=== PATIENT | male | born 1955 | race Caucasian/White ===

== ENCOUNTER 2018-07-05 13:30 | Day surgery (SDC) | payer OTHER ==
[~2018-07-05 13:30] MED LIST: CHOL10002 PO; DULO30 PO; GABA300 PO; IBUP400 PO; LEVSOD100 PO; LIPITOR PO; Multivitamin1 EAC1 PO; NAPR220 PO; TERA5 PO; TIOT18 INH; Zestril30 MG PO
== END 2018-07-05 23:16 | disposition home or self-care (01) ==
LOC: WOUND 13:30
DX: T81.30XA Disruption of wound, unspecified, initial encounter (principal); Z85.048 Personal history of other malignant neoplasm of rectum, rectosigmoid junction, and anus; J44.9 Chronic obstructive pulmonary disease, unspecified; I10 Essential (primary) hypertension; I73.9 Peripheral vascular disease, unspecified; E11.9 Type 2 diabetes mellitus without complications; M06.9 Rheumatoid arthritis, unspecified; M19.90 Unspecified osteoarthritis, unspecified site; G62.9 Polyneuropathy, unspecified; Z79.82 Long term (current) use of aspirin
CPT/HCPCS: G0463

== ENCOUNTER 2018-08-06 12:35 | Day surgery (SDC) | payer OTHER | END 2018-08-06 22:38 | disposition home or self-care (01) | LOC: WOUND 12:35 | DX: K62.6 Ulcer of anus and rectum (principal); I10 Essential (primary) hypertension; E11.9 Type 2 diabetes mellitus without complications; E11.40 Type 2 diabetes mellitus with diabetic neuropathy, unspecified; J44.9 Chronic obstructive pulmonary disease, unspecified; D64.9 Anemia, unspecified; Z85.048 Personal history of other malignant neoplasm of rectum, rectosigmoid junction, and anus | CPT/HCPCS: G0463 ==

== ENCOUNTER 2018-09-05 11:05 | Day surgery (SDC) | payer OTHER | END 2018-09-05 23:24 | disposition home or self-care (01) | LOC: WOUND 11:05 | DX: T81.89XA Other complications of procedures, not elsewhere classified, initial encounter (principal); J44.9 Chronic obstructive pulmonary disease, unspecified; I10 Essential (primary) hypertension; E11.51 Type 2 diabetes mellitus with diabetic peripheral angiopathy without gangrene; M06.9 Rheumatoid arthritis, unspecified; E11.40 Type 2 diabetes mellitus with diabetic neuropathy, unspecified; M19.90 Unspecified osteoarthritis, unspecified site; Z85.048 Personal history of other malignant neoplasm of rectum, rectosigmoid junction, and anus; Z92.21 Personal history of antineoplastic chemotherapy; Z92.3 Personal history of irradiation | CPT/HCPCS: G0463 ==

== ENCOUNTER 2018-12-17 14:00 | Emergency (ER) | payer OTHER ==
[~2018-12-17] VITALS: Ht 175.3 cm; Wt 89.8 kg
[2018-12-17 14:52] LABS: BASOPHILS ABSOLUTE AUTO 0.04 K/mm3 (0.00-0.23); BASOPHILS PERCENT AUTO 0 % (0-2); EOSINOPHILS PERCENT AUTO 3 % (0-6); Hematocrit 20.5 % (37.0-53.0); Hemoglobin 6.3 g/dL (13.5-17.5); IMMATURE GRAN PERCENT AUTO 1 % (0-1); LYMPHOCYTES ABSOLUTE AUTO 2.76 K/mm3 (0.84-5.20); LYMPHOCYTES PERCENT AUTO 26 % (21-46); MONOCYTES ABSOLUTE AUTO 0.58 K/mm3 (0.16-1.47); MONOCYTES PERCENT AUTO 5 % (4-13); Mean Corpuscular HGB 28.3 pg (26.0-34.0); Mean Corpuscular HGB Conc 30.7 g/dL (31.5-36.5); Mean Corpuscular Volume 92 fL (80-100); Mean Platelet Volume 9.7 fL (9.1-12.4); NEUTROPHILS ABSOLUTE AUTO 6.89 K/mm3 (1.96-9.15); NEUTROPHILS PERCENT AUTO 65 % (41-73); Platelet Count 331 K/mm3 (150-400); RDW Coefficient Variation 14.8 % (11.7-14.2); RDW Standard Deviation 49.9 fL (35.1-46.3); Red Blood Cell Count 2.23 M/mm3 (4.30-5.90); White Blood Cell Count 10.67 K/mm3 (4.00-11.30)
[2018-12-17 15:08] LABS: Albumin, Blood 2.6 g/dL (3.4-5.0); Albumin/Globulin Ratio 0.5 (0.8-1.8); Bilirubin, Total 0.2 mg/dL (0.1-1.0); Bun/Creatinine Ratio 13.4 (12.0-20.0); Calcium, Blood 6.6 mg/dL (8.5-10.1); Creatinine, Blood 1.34 mg/dL (0.60-1.20); Potassium, Blood 3.9 mmol/L (3.5-5.5); Total Protein, Blood 7.6 g/dL (6.4-8.2)
[2018-12-17] MEDS ORDERED: ALBU2.5V5 INH (15:43)
[2018-12-17] MEDS ORDERED: AMLO5 PO (15:43)
[2018-12-17] MEDS ORDERED: ASPI81CH PO (15:44)
[2018-12-17] MEDS ORDERED: ATOR10 PO (15:45)
[2018-12-17] MEDS ORDERED: DOXY100 PO (15:46)
[2018-12-17] MEDS ORDERED: DULO60 PO (15:46)
[2018-12-17] MEDS ORDERED: METF500 PO (15:47)
[2018-12-17] MEDS ORDERED: GABA300 PO (15:47)
[2018-12-17] MEDS ORDERED: HYDR1TAB94 PO (15:48)
[2018-12-17] MEDS ORDERED: FERSU300 PO (15:49)
[2018-12-17] MEDS ORDERED: Prinivil10 MG PO (15:49)
[2018-12-17] MEDS ORDERED: LEVSOD50 PO (15:49)
[2018-12-17] MEDS ORDERED: OMEP20ER PO (15:50)
[2018-12-17] MEDS ORDERED: MELO7.5 PO (15:50)
[2018-12-17] MEDS ORDERED: TERA5 PO (15:51)
[2018-12-17] MEDS ORDERED: MONT10T PO (15:51)
[2018-12-17] MEDS ORDERED: ACET500 PO (15:52)
[2018-12-17 17:05] LABS: Source, Urine Clean Catch
[2018-12-17 17:09] LABS: Bilirubin, Urine Neg (Neg); Blood, Urine Neg (Neg); Glucose Qualitative, Urine Neg (Neg); Ketones, Urine 1+ (Neg); Leukocyte Esterase, Urine Neg (Neg); Nitrite, Urine Neg (Neg); Protein, Urine 2+ (Neg); Urobilinogen, Urine 1+ (Normal)
[2018-12-17 17:17] LABS: Appearance, Urine Clear (Clear); Color, Urine Yellow (P-Yellow)
[2018-12-17 17:20] LABS: Bacteria Not Seen /hpf; Red Blood Cells, Urine Not Seen /hpf (0-2); Squamous Epithelial Cells Rare /hpf (Few); White Blood Cells, Urine 0-2 /hpf (0-5)
[2019-02-04] MEDS ORDERED: TIOT18 INH (11:04)
[2019-02-04] MEDS ORDERED: D3-20002000 UNIT PO (11:05)
[2019-02-04] MEDS ORDERED: HYDCHL25 PO (11:06)
[2019-02-04] MEDS ORDERED: Aspercreme 1035.4 GM TOP (11:07)
[2019-02-04] MEDS ORDERED: Aspir 8181 MG PO (11:07)
== END 2018-12-17 19:55 | disposition short-term general hospital (02) ==
LOC: ER 14:00
PROVIDERS: Physician Assistant
DX: T81.43XA Infection following a procedure, organ and space surgical site, initial encounter (principal); L02.214 Cutaneous abscess of groin; T81.32XA Disruption of internal operation (surgical) wound, not elsewhere classified, initial encounter; K92.2 Gastrointestinal hemorrhage, unspecified; D50.0 Iron deficiency anemia secondary to blood loss (chronic); J44.9 Chronic obstructive pulmonary disease, unspecified; I10 Essential (primary) hypertension; E78.00 Pure hypercholesterolemia, unspecified; Z91.030 Bee allergy status; Z79.899 Other long term (current) drug therapy; Z79.82 Long term (current) use of aspirin; Z79.84 Long term (current) use of oral hypoglycemic drugs; Z87.891 Personal history of nicotine dependence
CPT/HCPCS: 36415; 36430; 76882; 80053; 81001; 82272; 85025; 86850; 86900; 86901; 86923; 93005; 93010; 93971; 96374; 99285-25; C9113; J7030; P9016

== ENCOUNTER 2019-02-12 13:04 | Day surgery (SDC) | payer OTHER ==
[~2019-02-12 13:04] MED LIST changes: +ACET500 PO; +ALBU2.5V5 INH; +AMLO5 PO; +ASPI81CH PO; +ATOR10 PO; +Aspercreme 1035.4 GM TOP; +Aspir 8181 MG PO; +D3-20002000 UNIT PO; +DOXY100 PO; +DULO60 PO; +FERSU300 PO; +HYDCHL25 PO; +HYDR1TAB94 PO; +LEVSOD50 PO; +MELO7.5 PO; +METF500 PO; +MONT10T PO; +OMEP20ER PO; +Prinivil10 MG PO
[2019-02-12] MEDS ORDERED: HYDRA25 (13:27)
[2019-02-12] MEDS ORDERED: Lisinopril2.5 MG (13:28)
[2019-02-12] MEDS ORDERED: AMLO10 (13:29)
== END 2019-02-12 15:14 | disposition home or self-care (01) ==
LOC: ORSCSDS 13:04
PROVIDERS: Internal Medicine Gastroenterology
PROC: 0DBL8ZX Excision of Transverse Colon, Via Natural or Artificial Opening Endoscopic, Diagnostic (ICD-10-PCS; principal; 2019-02-12 14:15)
PROC: 0DBH8ZX Excision of Cecum, Via Natural or Artificial Opening Endoscopic, Diagnostic (ICD-10-PCS; principal; 2019-02-12 14:15)
PROC: 0DB68ZX Excision of Stomach, Via Natural or Artificial Opening Endoscopic, Diagnostic (ICD-10-PCS; 2019-02-12 14:15)
PROC: 0DB98ZX Excision of Duodenum, Via Natural or Artificial Opening Endoscopic, Diagnostic (ICD-10-PCS; 2019-02-12 14:15)
DX: D50.9 Iron deficiency anemia, unspecified (principal); D12.0 Benign neoplasm of cecum; D12.3 Benign neoplasm of transverse colon; Z85.048 Personal history of other malignant neoplasm of rectum, rectosigmoid junction, and anus; K29.80 Duodenitis without bleeding; I10 Essential (primary) hypertension; K21.0 Gastro-esophageal reflux disease with esophagitis; E11.9 Type 2 diabetes mellitus without complications; J44.9 Chronic obstructive pulmonary disease, unspecified; F17.210 Nicotine dependence, cigarettes, uncomplicated; Z79.82 Long term (current) use of aspirin; Z79.899 Other long term (current) drug therapy
CPT/HCPCS: 82947; 88305; 88313; 88342; J2704; J7120

== ENCOUNTER 2022-04-06 17:48 | Inpatient (IN) | payer OTHER ==
[~2022-04-06] VITALS: Ht 175.3 cm; Wt 84.3 kg
[~2022-04-06 17:48] MED LIST changes: +AMLO10; -D3-20002000 UNIT PO; +DOCU100 PO; +EUTHYROX50 MCG PO; +HYDRA25 PO; -LEVSOD50 PO; +Lisinopril2.5 MG PO; +NIFE60ER PO; +QUET25 PO; +Vitamin D2000 UNIT PO
[2022-04-06 18:18] LABS: BASOPHILS ABSOLUTE AUTO 0.04 K/mm3 (0.00-0.23); BASOPHILS PERCENT AUTO 0 % (0-2); EOSINOPHILS PERCENT AUTO 1 % (0-6); Hematocrit 24.4 % (37.0-53.0); Hemoglobin 7.9 g/dL (13.5-17.5); IMMATURE GRAN ABSOLUTE AUTO 0.01 K/mm3 (0.00-0.10); IMMATURE GRAN PERCENT AUTO 0 % (0-1); LYMPHOCYTES ABSOLUTE AUTO 1.62 K/mm3 (0.84-5.20); LYMPHOCYTES PERCENT AUTO 17 % (21-46); MONOCYTES ABSOLUTE AUTO 0.65 K/mm3 (0.16-1.47); MONOCYTES PERCENT AUTO 7 % (4-13); Mean Corpuscular HGB 32.5 pg (26.0-34.0); Mean Corpuscular HGB Conc 32.4 g/dL (31.5-36.5); Mean Corpuscular Volume 100 fL (80-100); Mean Platelet Volume 11.1 fL (9.1-12.4); NEUTROPHILS ABSOLUTE AUTO 6.88 K/mm3 (1.96-9.15); NEUTROPHILS PERCENT AUTO 74 % (41-73); Platelet Count 296 K/mm3 (150-400); RDW Standard Deviation 51.3 fL (35.1-46.3); Red Blood Cell Count 2.43 M/mm3 (4.30-5.90)
[2022-04-06 18:42] LABS: Albumin, Blood 2.8 g/dL (3.4-5.0); Albumin/Globulin Ratio 0.7 (0.8-1.8); Bilirubin, Total 0.2 mg/dL (0.1-1.0); Bun/Creatinine Ratio 21.6 (12.0-20.0); Calcium, Blood 7.9 mg/dL (8.5-10.1); Creatinine, Blood 1.62 mg/dL (0.60-1.20); Globulin, Blood 4.2 g/dL (2.2-4.0); Potassium, Blood 4.1 mmol/L (3.5-5.5)
[2022-04-06 18:59] LABS: Base Excess Venous -2.3 mmol/L; Bicarbonate Venous 22.5 mmol/L (24.0-30.0); pH Blood Venous 7.34 (7.34-7.37)
[2022-04-06] MEDS ORDERED: GABA300 PO (22:39)
--- NOTE | 2022-04-07 00:25 | NUR ---
ADMISSION: PATIENT IS RECIEVED FROM ER VIA STRETCHER. LETHARGIC BUT ORIENTED TO PERSON, PLACE, TIME AND FAMILY. VOIDED IN THE URINAL WITH ASSISTANCE. URINE SAMPLE IS SENT TO LAB. BP IS ELEVATED, PATIENT IS ASYMPTOMATIC AND DENIES HEADACHE OR BLURRED VISION. TELI. IS PLACED. BED ALARM IS ON. PATIENT IS ORIENTED TO ROOM AND CALL CASTILLO. 2 RN SKIN CHECK IS COMPLETED WITH CHRIS MONTES DE OCA RN. NO WOUNDS OBSERVED. SCATTERED SCABS AND BRUISES FROM RECENT FALLS AT HOME.
--- NOTE | 2022-04-07 02:30 | NUR ---
: PATIENT HAS URINARY FREQUENCY AND ORDER TO BLADDER SCAN. [address] BARRETT WAS NOYTIFIED AND ORDER TO STRAIGHT CATH NOW AND BLADDER SCAN Q 8 HR. PATIENT VOIDED 100MLS AND 450MLS WERE EMPTIED FROM BLADDER VIA STRAIGHT CATH. BLADDER SCAN NEXT DUE AT 10:00 AM.
[2022-04-07 03:04] LABS: Source, Urine Straight Cath
[2022-04-07 03:07] LABS: Bilirubin, Urine Neg (Neg); Blood, Urine 1+ (Neg); Glucose Qualitative, Urine Neg (Neg); Ketones, Urine Neg (Neg); Leukocyte Esterase, Urine Neg (Neg); Nitrite, Urine Neg (Neg); Protein, Urine 3+ (Neg); Specific Gravity, Urine 1.015 (1.003-1.022); Urobilinogen, Urine NORM (Normal)
[2022-04-07 03:20] LABS: Appearance, Urine Clear (Clear); Color, Urine Yellow (P-Yellow)
[2022-04-07 03:24] LABS: Bacteria Rare /hpf; Red Blood Cells, Urine 0-2 /hpf (0-2); Squamous Epithelial Cells Rare /hpf (Few)
[2022-04-07 03:25] LABS: U Amphetamine Screen Not Detected; U Barbituate Screen Not Detected; U Benzodiazapine Screen Not Detected; U Buprenorphine Screen Not Detected; U Cannabinoids Screen Not Detected; U Cocaine Screen Not Detected; U Methadone Screen Not Detected; U Methamphetamine Screen Not Detected; U Opiates Screen Not Detected; U Oxycodone Screen Not Detected; U Phencyclidine Screen Not Detected; U Propoxyphene Screen Not Detected
[2022-04-07 05:53] LABS: BASOPHILS ABSOLUTE AUTO 0.02 K/mm3 (0.00-0.23); BASOPHILS PERCENT AUTO 0 % (0-2); EOSINOPHILS PERCENT AUTO 0 % (0-6); Hematocrit 25.5 % (37.0-53.0); Hemoglobin 8.2 g/dL (13.5-17.5); IMMATURE GRAN ABSOLUTE AUTO 0.03 K/mm3 (0.00-0.10); IMMATURE GRAN PERCENT AUTO 0 % (0-1); LYMPHOCYTES ABSOLUTE AUTO 0.96 K/mm3 (0.84-5.20); LYMPHOCYTES PERCENT AUTO 11 % (21-46); MONOCYTES ABSOLUTE AUTO 0.11 K/mm3 (0.16-1.47); MONOCYTES PERCENT AUTO 1 % (4-13); Mean Corpuscular HGB 31.8 pg (26.0-34.0); Mean Corpuscular HGB Conc 32.2 g/dL (31.5-36.5); Mean Corpuscular Volume 99 fL (80-100); Mean Platelet Volume 11.5 fL (9.1-12.4); NEUTROPHILS ABSOLUTE AUTO 7.78 K/mm3 (1.96-9.15); NEUTROPHILS PERCENT AUTO 88 % (41-73); Platelet Count 323 K/mm3 (150-400); RDW Coefficient Variation 13.8 % (11.7-14.2); RDW Standard Deviation 49.9 fL (35.1-46.3); Red Blood Cell Count 2.58 M/mm3 (4.30-5.90)
[2022-04-07 06:35] LABS: Albumin, Blood 2.8 g/dL (3.4-5.0); Albumin/Globulin Ratio 0.6 (0.8-1.8); Bilirubin, Total 0.2 mg/dL (0.1-1.0); Bun/Creatinine Ratio 25.4 (12.0-20.0); Calcium, Blood 8.7 mg/dL (8.5-10.1); Creatinine, Blood 1.3 mg/dL (0.60-1.20); Globulin, Blood 4.6 g/dL (2.2-4.0); Potassium, Blood 4.4 mmol/L (3.5-5.5); Total Protein, Blood 7.4 g/dL (6.4-8.2)
--- NOTE | 2022-04-07 08:44 | NUR ---
NOTIFIED BY [employer] Louisa PUCKETT THAT PT HAVING CHANGE IN ST SEGMENT, POSSIBLE ELEVATION. ASSESSED PT: ENDORSES CHEST DISCOMFORT THAT HE STATED STARTED "THIS MORNING" BUT COULD NOT GIVE EXACT TIME. ALSO, DID NOT ENDORSE PAIN WHEN ASKED DURING ASSESSMENT. ALSO STATED THAT HE'S HAVING DISCOMFORT IN THE R SIDE OF HIS NECK, HAS DRY COUGH. HEART RATE/RHYTHYM ST AT 120'S. APPEARS ANXIOUS, NO DIAPHORESIS. SPOKE TO DR. CONDON BY PHONE, RECEIVED ORDERS FOR EKG AND CARDIAC ENZYMES. WILL CONTINUE TO MONITOR.
[2022-04-07 09:50] LABS: Creatine Kinase MB 6.5 ng/mL (0.0-3.6); Creatine Kinase MB Index 8.3 (0.0-4.0); Magnesium, Blood 1.2 mg/dL (1.6-2.4); Phosphorus, Blood 4.4 mg/dL (2.5-4.9)
[2022-04-07 10:36] LABS: Anti-Xa UFH, PHA Monitoring <0.10 IU/mL; International Normalized Ratio 1.05
--- NOTE | 2022-04-07 18:36 | NUR ---
SUMMARY Assumed care of pt at 1040 on arrival to PCU 4 from medical floor. Report received from Roxi CANTOR. Patient transferred due to ST depression and chest pain. On arrival, noted that pt was hypertensive. Noted that medical floor nurse medicated patient with PO antihypertensives. Call placed to Dr Burris to discuss as pt's SBP was 180-190 mmHg. Provider ordered additional oral antihypertensives as well as IV hydralyzine. 5 mg IV hydralyzine given. Noticed considerable improvement. Patient felt better and denied chest pain after BP stabilized. Discussed additional 25 [address] xl with Dr Burris and provider stated this could be held and will give a dose this evening. Discussed that pt had expiratory wheezes in all lung tam. BD protocol and portable CXR ordered. Dr Saini was in to see patient and stated she did not have plans to perform cardiac cath today, patient may eat. Pt had dinner, tolerated well. Pt has been a lot more alert this afternoon. Pleasant and cooperative with care. SpO2 90% or greater with room air. SR per monitor, rate 80s, no ST depressions or elevations. Pt had one void into urinal and one large incontinent void. Pt's mother and sister in to see patient and recieved update on plan of care.
--- NOTE | 2022-04-07 19:36 | NUR ---
ASSUMMED CARE OF PT AT 1915. REPORT DONE WITH PT'S SISTER. PT CURRENTLY SLEEPING. PT IN NO APPARENT DISTRESS. WILL REVIEW CHART AND PLAN OF CARE FOR THIS PT.
[2022-04-08 01:34] LABS: BASOPHILS ABSOLUTE AUTO 0.03 K/mm3 (0.00-0.23); BASOPHILS PERCENT AUTO 0 % (0-2); EOSINOPHILS ABSOLUTE AUTO 0.02 K/mm3 (0.00-0.68); EOSINOPHILS PERCENT AUTO 0 % (0-6); Hematocrit 25.2 % (37.0-53.0); Hemoglobin 7.9 g/dL (13.5-17.5); IMMATURE GRAN ABSOLUTE AUTO 0.03 K/mm3 (0.00-0.10); IMMATURE GRAN PERCENT AUTO 0 % (0-1); LYMPHOCYTES ABSOLUTE AUTO 2.26 K/mm3 (0.84-5.20); LYMPHOCYTES PERCENT AUTO 21 % (21-46); MONOCYTES ABSOLUTE AUTO 0.65 K/mm3 (0.16-1.47); MONOCYTES PERCENT AUTO 6 % (4-13); Mean Corpuscular HGB 31.6 pg (26.0-34.0); Mean Corpuscular HGB Conc 31.3 g/dL (31.5-36.5); Mean Corpuscular Volume 101 fL (80-100); Mean Platelet Volume 11.1 fL (9.1-12.4); NEUTROPHILS ABSOLUTE AUTO 7.91 K/mm3 (1.96-9.15); NEUTROPHILS PERCENT AUTO 73 % (41-73); Platelet Count 321 K/mm3 (150-400); RDW Coefficient Variation 14.2 % (11.7-14.2); RDW Standard Deviation 52.2 fL (35.1-46.3); RETICULOCYTE ABSOLUTE 0.0268 M/mm3 (0.0200-0.1100); RETICULOCYTE COUNT PERCENT 1.07 % (0.50-2.50)
[2022-04-08 02:17] LABS: Albumin, Blood 2.8 g/dL (3.4-5.0); Albumin/Globulin Ratio 0.6 (0.8-1.8); Bilirubin, Total 0.2 mg/dL (0.1-1.0); Bun/Creatinine Ratio 20.7 (12.0-20.0); Calcium, Blood 8.1 mg/dL (8.5-10.1); Creatinine, Blood 1.5 mg/dL (0.60-1.20); Globulin, Blood 4.4 g/dL (2.2-4.0); Magnesium, Blood 1.8 mg/dL (1.6-2.4); Percent Saturation 67.7 % (20.0-50.0); Potassium, Blood 4.3 mmol/L (3.5-5.5); Total Protein, Blood 7.2 g/dL (6.4-8.2)
[2022-04-08 03:54] LABS: Stool Occult Bld Immuno 1 Negative (NEGATIVE)
[2022-04-08 04:06] LABS: Source, Urine Foley catheter
[2022-04-08 04:14] LABS: Bilirubin, Urine Neg (Neg); Blood, Urine 5+ (Neg); Glucose Qualitative, Urine Neg (Neg); Ketones, Urine Neg (Neg); Leukocyte Esterase, Urine Neg (Neg); Nitrite, Urine Neg (Neg); Protein, Urine 3+ (Neg); Urobilinogen, Urine NORM (Normal)
[2022-04-08 04:19] LABS: Appearance, Urine Clear (Clear); Color, Urine Pale Yellow (P-Yellow)
[2022-04-08 04:20] LABS: Bacteria Not Seen /hpf; Red Blood Cells, Urine TNTC /hpf (0-2); Squamous Epithelial Cells Not Seen /hpf (Few); White Blood Cells, Urine 0-2 /hpf (0-5)
--- NOTE | 2022-04-08 06:33 | NUR ---
PT HAS HAD GOOD OUTPUT FROM HUTCHINSON CATHETER. HAS BEEN ABLE TO SLEEP SOME. NO COMPLAINTS OF CHEST PAIN OR PRESSURE. REMAINS ON ROOM AIR AND MAINTAINS > 90 PERCENT SATURATION. MEDICATED PT WITH 10 MG HYDRALAZINE FOR SBP > 170. RECHECK SHOWS SBP 150'S. PT HAS BEEN ABLE TO MOVE ABOUT BED ON HIS OWN. NPO SINCE 0 PENDING PROBABLE ANGIOGRAM. WILL CONTINUE TO MONITOR PT, AND WILL REPORT OFF TO ONCOMING RN.
--- NOTE | 2022-04-08 17:10 | NUR ---
SHIFT SUMMARY PT REMAINS ALERT TO SELF AND PLACE. BP STABLE. HR REMAINS NSR. O2 SATS REMAIN ABOVE 90% ON RA. PT HAS DENIED ANY PAIN. HUTCHINSON PATENT AND DRAINING CLEAR YELLOR URINE. COLOSTOMY WITH SOFT BROWN OUTPUT. PT REPOSITIONING HIMSELF IN THE BED INDEPENDENTLY. PT'S SISTER DISCUSSED POSSIBILITY OF ANGIOGRAM WITH DR. SANTANA THIS AM AND DECIDED TO GO WITH MEDICAL MANAGEMENT. PT CONTINUES TO DENY ANY CHEST PAIN. PT RECEIVED 1U PRBC. WILL CONTINUE TO MONITOR AND REPORT TO ONCOMING RN
--- NOTE | 2022-04-09 05:55 | NUR ---
SHIFT SUMMARY PT IS A/Ox2 AND IS COOPERATIVE WITH CARE PROVIDED BY STAFF. PT SLEPT T/O MOST OF THE NIGHT A SLEEP STUDY WAS UNDERGONE FOR MICHELA DIAGNOSIS. MAINTAINS SPO2 >94% ON RA WITH NO SOB OR DYSPNEA NOTED AT REST. CARDIAC MARIE, PT HAS NOT REPORTED ANY CP OR PRESSURE T/O THE SHIFT AND HAS MAINTAINED HR OF 80-100'S. BP HAS BEEN A LITTLE ELEVATED WITH SBP RANGING 160-170'S. PRN HYDRALAZINE GIVEN ORDERED PER EMAR. PT RESPONDED MODERATELY. HUTCHINSON CATH IN PLACE, PATENT, DRAINING CLEAR/YELLOW URINE TO GRAVITY. COLOSTOMY BAG IN PLACE ON RLQ PRODUCING BROWN/SOFT STOOL. VSS, NADN T/O THE SHIFT
--- NOTE | 2022-04-09 17:19 | NUR ---
SHIFT SUMMARY PT REMAINS ALERT AND ORIENTED TO SELF, PLACE AND FOLLOWING DIRECTIONS. BP STABLE. HR REMAINS NSR. O2 SATS REMAIN ABOVE 90% ON RA. PT HAS DENIED ANY PAIN ALL SHIFT. PT REPOSITIONING HIMSELF IN THE BED INDEPENDENTLY. HUTCHINSON PATENT AND DRAINING CLEAR YELLOW URINE. PT CONTINUES TO DENY CHEST PAIN. SISTER JOANNE UPDATED THIS SHIFT. WILL CONTINUE TO MONITOR AND REPORT TO ONCOMING RN
--- NOTE | 2022-04-10 04:36 | NUR ---
SHIFT SUMMARY PT IS A/Ox2 AND IS COOPERATIVE WITH CARE PROVIDED BY STAFF. PT WAS RELAXING IN BED WATCHING TV FOR MOST OF THE NIGHT. MAINTAINS SPO2 >94% ON RA WITH NO SOB OR DYSPNEA NOTED AT REST. CARDIAC MARIE, PT HAS NOT REPORTED ANY CP OR PRESSURE T/O THE SHIFT AND HAS MAINTAINED HR OF 80-100'S. BP'S WERE MUCH MORE MANAGEABLE THIS NIGHT COMPARED TO LAST NIGHT WITH SBP HOLDING AROUN THE 150'S. HUTCHINSON CATH PATENT DRAINING CLEAR, YELLOW URINE TO GRAVITY. HUTCHINSON TO BE DC'd THIS AM PER MD'S ORDERS. COLOSTOMY BAG IN PLACE ON LLQ PRODUCING SOFT/BROWN STOOL. POTENTIAL DC TODAY DURING DAY SHIFT. VSS, NADN NOTED T/O THE SHIFT
[2022-04-10 05:25] LABS: BASOPHILS ABSOLUTE AUTO 0.05 K/mm3 (0.00-0.23); BASOPHILS PERCENT AUTO 1 % (0-2); EOSINOPHILS PERCENT AUTO 2 % (0-6); Hematocrit 26.1 % (37.0-53.0); Hemoglobin 8.6 g/dL (13.5-17.5); IMMATURE GRAN ABSOLUTE AUTO 0.04 K/mm3 (0.00-0.10); IMMATURE GRAN PERCENT AUTO 1 % (0-1); LYMPHOCYTES ABSOLUTE AUTO 2.02 K/mm3 (0.84-5.20); LYMPHOCYTES PERCENT AUTO 23 % (21-46); MONOCYTES ABSOLUTE AUTO 0.65 K/mm3 (0.16-1.47); MONOCYTES PERCENT AUTO 7 % (4-13); Mean Corpuscular HGB 32.1 pg (26.0-34.0); Mean Corpuscular Volume 97 fL (80-100); Mean Platelet Volume 11.8 fL (9.1-12.4); NEUTROPHILS ABSOLUTE AUTO 5.79 K/mm3 (1.96-9.15); NEUTROPHILS PERCENT AUTO 66 % (41-73); Platelet Count 310 K/mm3 (150-400); RDW Coefficient Variation 14.8 % (11.7-14.2); RDW Standard Deviation 52.3 fL (35.1-46.3); Red Blood Cell Count 2.68 M/mm3 (4.30-5.90); White Blood Cell Count 8.75 K/mm3 (4.00-11.30)
[2022-04-10 05:49] LABS: Albumin, Blood 2.6 g/dL (3.4-5.0); Albumin/Globulin Ratio 0.6 (0.8-1.8); Bilirubin, Total 0.5 mg/dL (0.1-1.0); Bun/Creatinine Ratio 20.6 (12.0-20.0); Calcium, Blood 8.6 mg/dL (8.5-10.1); Creatinine, Blood 1.31 mg/dL (0.60-1.20); Globulin, Blood 4.2 g/dL (2.2-4.0); Potassium, Blood 3.9 mmol/L (3.5-5.5); Total Protein, Blood 6.8 g/dL (6.4-8.2)
--- NOTE | 2022-04-10 13:41 | NUR ---
UPDATE REPORT GIVEN TO MEDICAL FLOOR RN. PT TAKEN UP BY IRMA WITH ALL OF HIS BELONGINGS. ATTEMPTED TO CALL SISTER ARELY TO UPDATE HER, BUT DID NOT ANSWER.
--- NOTE | 2022-04-10 18:26 | NUR ---
Patient arrived from PCU, handoff report received from RN. Patient doing well, vitals stable. MD ordered "Remove Vyas Catheter". Removed vyas, patient ambulated to bathroom. PVR was 118mL. Patient doing well, no complaints of pain. Colostomy device intact. Will continue plan of care, awaiting discharge planning.
--- NOTE | 2022-04-10 20:22 | NUR ---
RESTING QUIETLY WITH HOB ELEVATED. CALL LIGHT IN REACH.
--- NOTE | 2022-04-11 03:31 | NUR ---
DOUGH BRAKER SUMMARY BP WAS ELEVATED AT SHIFT COMMENCE, BUT HAS TRENDED DOWNWARD TO 159/83 CURRENTLY. HAS BEEN RESTING QUIETLY WITH OCCASIONAL INTERUPTIONS TO VOID, ETC. NOTED HEMATURIA WITH EACH VOIDING (HUTCHINSON WAS REMOVED ON PREVIOUS SHIFT, WHO VOICED SOME HEMATURIA AT SHIFT COMMENCE). NOTED HEMATURIA WAS DARKER, NOTIFIED, ALTHOUGH PT ASYMPTOMATIC, NO S/S ACUTE DISTRESS, MD ORDERED A CBC IN THE AM. BLADDER SCAN 17 ML. RAILS UP X 3 WITH BED ALARM ON AND CALL LIGHT IN REACH FOR SAFETY. WILL CONTINUE TO MONITOR.
[2022-04-11 05:14] LABS: BASOPHILS ABSOLUTE AUTO 0.04 K/mm3 (0.00-0.23); BASOPHILS PERCENT AUTO 1 % (0-2); EOSINOPHILS ABSOLUTE AUTO 0.11 K/mm3 (0.00-0.68); EOSINOPHILS PERCENT AUTO 2 % (0-6); Hematocrit 26.1 % (37.0-53.0); Hemoglobin 8.6 g/dL (13.5-17.5); IMMATURE GRAN ABSOLUTE AUTO 0.07 K/mm3 (0.00-0.10); IMMATURE GRAN PERCENT AUTO 1 % (0-1); LYMPHOCYTES ABSOLUTE AUTO 1.29 K/mm3 (0.84-5.20); LYMPHOCYTES PERCENT AUTO 20 % (21-46); MONOCYTES ABSOLUTE AUTO 0.63 K/mm3 (0.16-1.47); MONOCYTES PERCENT AUTO 10 % (4-13); Mean Corpuscular Volume 97 fL (80-100); Mean Platelet Volume 11.8 fL (9.1-12.4); NEUTROPHILS ABSOLUTE AUTO 4.28 K/mm3 (1.96-9.15); NEUTROPHILS PERCENT AUTO 67 % (41-73); Platelet Count 307 K/mm3 (150-400); RDW Coefficient Variation 14.4 % (11.7-14.2); RDW Standard Deviation 50.8 fL (35.1-46.3); Red Blood Cell Count 2.69 M/mm3 (4.30-5.90); White Blood Cell Count 6.42 K/mm3 (4.00-11.30)
[2022-04-11 05:43] LABS: Bun/Creatinine Ratio 17.1 (12.0-20.0); Calcium, Blood 8.3 mg/dL (8.5-10.1); Creatinine, Blood 1.46 mg/dL (0.60-1.20); Potassium, Blood 3.9 mmol/L (3.5-5.5)
[2022-04-11 07:50] LABS: Albumin, Blood 2.7 g/dL (3.4-5.0); Albumin/Globulin Ratio 0.6 (0.8-1.8); Bilirubin, Direct 0.1 mg/dL (0.0-0.3); Bilirubin, Indirect 0.2 mg/dL (0.1-0.7); Bilirubin, Total 0.3 mg/dL (0.1-1.0); Globulin, Blood 4.2 g/dL (2.2-4.0); Total Protein, Blood 6.9 g/dL (6.4-8.2)
[2022-04-11] MEDS ORDERED: Isosorbide Mono30 MG PO (15:17)
[2022-04-11] MEDS ORDERED: METO50ER PO (15:18)
[2022-04-11] MEDS ORDERED: TAMS.4ER PO (15:18)
[2022-04-11] MEDS ORDERED: NIFE60ER PO (15:18)
--- NOTE | 2022-04-11 16:52 | NUR ---
Patient medically stable ready for discharge. MD assessed patient and spoke with sister(LLUVIA). Orders to discharge home with homehealth. Removed IV in hand & powerglide in LUE. Discharge teaching provided, faxed med rec. Patient discharged at 1600.
== END 2022-04-11 14:47 | disposition home health service (06) | DRG 280 ==
LOC: ER 17:48 → PCU 17:49 → MEDS 17:49 → ER 17:49 → MEDS 04-07 00:08 → PCU 04-07 10:41 → MEDS 04-07 12:21 → PCU 04-07 12:21 → MEDS 04-07 12:36 → PCU 04-07 12:36 → MEDS 04-07 15:15 → PCU 04-07 15:15 → MEDS 04-10 13:43
PROVIDERS: Family Medicine; Hospitalist; Internal Medicine; Student in an Organized Health Care Education/Training Program; ADMIT Family Medicine
PROC: 30233N1 Transfusion of Nonautologous Red Blood Cells into Peripheral Vein, Percutaneous Approach (ICD-10-PCS; principal; 2022-04-08)
DX: I21.4 Non-ST elevation (NSTEMI) myocardial infarction (principal); G92.8 Other toxic encephalopathy; N17.9 Acute kidney failure, unspecified; I16.1 Hypertensive emergency; I95.2 Hypotension due to drugs; T42.6X1A Poisoning by other antiepileptic and sedative-hypnotic drugs, accidental (unintentional), initial encounter; T39.1X1A Poisoning by 4-Aminophenol derivatives, accidental (unintentional), initial encounter; T46.5X1A Poisoning by other antihypertensive drugs, accidental (unintentional), initial encounter; N18.9 Chronic kidney disease, unspecified; R33.8 Other retention of urine; D63.1 Anemia in chronic kidney disease; I73.9 Peripheral vascular disease, unspecified; I25.9 Chronic ischemic heart disease, unspecified; J44.9 Chronic obstructive pulmonary disease, unspecified; I12.9 Hypertensive chronic kidney disease with stage 1 through stage 4 chronic kidney disease, or unspecified chronic kidney disease; E03.9 Hypothyroidism, unspecified; R62.50 Unspecified lack of expected normal physiological development in childhood; E78.00 Pure hypercholesterolemia, unspecified; G62.9 Polyneuropathy, unspecified; F17.210 Nicotine dependence, cigarettes, uncomplicated; E66.9 Obesity, unspecified; E86.0 Dehydration; I16.0 Hypertensive urgency; N40.1 Benign prostatic hyperplasia with lower urinary tract symptoms; D50.9 Iron deficiency anemia, unspecified; K21.9 Gastro-esophageal reflux disease without esophagitis; Z60.9 Problem related to social environment, unspecified; Z91.030 Bee allergy status; Z95.820 Peripheral vascular angioplasty status with implants and grafts; Z85.048 Personal history of other malignant neoplasm of rectum, rectosigmoid junction, and anus; Z79.811 Long term (current) use of aromatase inhibitors; Z79.899 Other long term (current) drug therapy; Z90.49 Acquired absence of other specified parts of digestive tract; Z68.29 Body mass index [BMI] 29.0-29.9, adult; Z79.02 Long term (current) use of antithrombotics/antiplatelets; Z93.3 Colostomy status; Z79.82 Long term (current) use of aspirin
CPT/HCPCS: 36415; 36430; 51701; 51703; 70450; 71045; 80048; 80053; 80076; 81001; 82140; 82274; 82550; 82553; 82607; 82728; 82746; 82803; 83540; 83550; 83605; 83735; 83880; 84100; 84484; 85025; 85045; 85520; 85610; 85730; 86850; 86900; 86901; 86923; 93005; 93010; 93308; 93321; 94640; 94664; 94760; 96374; 97116; 97162; 97166; 97530; 97535; 99285-25; A9270; C1751; J0360; J1644; J2405; J2930; J3475; J7050; J7120; P9016

== ENCOUNTER 2022-05-03 17:16 | Inpatient (IN) | payer OTHER ==
[~2022-05-03] VITALS: Ht 175.3 cm; Wt 72.9 kg
[~2022-05-03 17:16] MED LIST changes: +Isosorbide Mono30 MG PO; +METO50ER PO; +TAMS.4ER PO
[2022-05-03 18:36] LABS: BASOPHILS ABSOLUTE AUTO 0.05 K/mm3 (0.00-0.23); BASOPHILS PERCENT AUTO 0 % (0-2); EOSINOPHILS ABSOLUTE AUTO 0.05 K/mm3 (0.00-0.68); EOSINOPHILS PERCENT AUTO 0 % (0-6); Hematocrit 29.1 % (37.0-53.0); Hemoglobin 9.8 g/dL (13.5-17.5); IMMATURE GRAN PERCENT AUTO 1 % (0-1); LYMPHOCYTES ABSOLUTE AUTO 2.25 K/mm3 (0.84-5.20); LYMPHOCYTES PERCENT AUTO 15 % (21-46); MONOCYTES ABSOLUTE AUTO 0.92 K/mm3 (0.16-1.47); MONOCYTES PERCENT AUTO 6 % (4-13); Mean Corpuscular HGB 31.4 pg (26.0-34.0); Mean Corpuscular HGB Conc 33.7 g/dL (31.5-36.5); Mean Corpuscular Volume 93 fL (80-100); Mean Platelet Volume 11.2 fL (9.1-12.4); NEUTROPHILS ABSOLUTE AUTO 11.67 K/mm3 (1.96-9.15); NEUTROPHILS PERCENT AUTO 78 % (41-73); Platelet Count 347 K/mm3 (150-400); RDW Coefficient Variation 14.7 % (11.7-14.2); RDW Standard Deviation 50.5 fL (35.1-46.3); Red Blood Cell Count 3.12 M/mm3 (4.30-5.90); White Blood Cell Count 15.04 K/mm3 (4.00-11.30)
[2022-05-03 19:00] LABS: Albumin, Blood 2.5 g/dL (3.4-5.0); Albumin/Globulin Ratio 0.5 (0.8-1.8); Bilirubin, Total 0.2 mg/dL (0.1-1.0); Bun/Creatinine Ratio 19.3 (12.0-20.0); Calcium, Blood 6.4 mg/dL (8.5-10.1); Creatinine, Blood 2.43 mg/dL (0.60-1.20); Globulin, Blood 4.9 g/dL (2.2-4.0); Potassium, Blood 3.5 mmol/L (3.5-5.5); Total Protein, Blood 7.4 g/dL (6.4-8.2)
[2022-05-03 19:06] LABS: Magnesium, Blood 0.5 mg/dL (1.6-2.4)
[2022-05-03 20:29] LABS: Influenza A, PCR NEGATIVE (NEGATIVE); Influenza B, PCR NEGATIVE (NEGATIVE); Resp Syncytial Virus, PCR NEGATIVE (NEGATIVE); SARS-Cov-2 (COVID-19) PCR, MMC NEGATIVE (NEGATIVE)
--- NOTE | 2022-05-04 04:34 | NUR ---
SHIFT SUMMARY: Pt A/Ox4. According to pt sister Aby he is cognitively impaired so he can be forgetful or doesnt fully understand things explained to him. If the DR rounds before she arrives to hospital she would like to be called- this will be relayed to day shift. When pt arrived to unit (around 39) magnesium had come back at 0.9 2gram magnesium IV given. Recheck for magnesium at 399, will replace per protocol. He denies nausea/vomiting, he did have liquid stool in his LLQ colostomy- he stated this had been ongoing for the last couple days. He denies SOB, states sometimes he is dizzy (he will be SBA with bed alarms on). IVF infusing.
[2022-05-04 05:09] LABS: BASOPHILS ABSOLUTE AUTO 0.05 K/mm3 (0.00-0.23); BASOPHILS PERCENT AUTO 0 % (0-2); EOSINOPHILS ABSOLUTE AUTO 0.09 K/mm3 (0.00-0.68); EOSINOPHILS PERCENT AUTO 1 % (0-6); Hematocrit 26.3 % (37.0-53.0); Hemoglobin 8.7 g/dL (13.5-17.5); IMMATURE GRAN ABSOLUTE AUTO 0.06 K/mm3 (0.00-0.10); IMMATURE GRAN PERCENT AUTO 1 % (0-1); LYMPHOCYTES ABSOLUTE AUTO 1.68 K/mm3 (0.84-5.20); LYMPHOCYTES PERCENT AUTO 13 % (21-46); MONOCYTES ABSOLUTE AUTO 0.72 K/mm3 (0.16-1.47); MONOCYTES PERCENT AUTO 6 % (4-13); Mean Corpuscular HGB Conc 33.1 g/dL (31.5-36.5); Mean Corpuscular Volume 94 fL (80-100); Mean Platelet Volume 11.5 fL (9.1-12.4); NEUTROPHILS ABSOLUTE AUTO 10.21 K/mm3 (1.96-9.15); NEUTROPHILS PERCENT AUTO 80 % (41-73); Platelet Count 302 K/mm3 (150-400); RDW Coefficient Variation 14.8 % (11.7-14.2); RDW Standard Deviation 51.5 fL (35.1-46.3); Red Blood Cell Count 2.81 M/mm3 (4.30-5.90); White Blood Cell Count 12.81 K/mm3 (4.00-11.30)
[2022-05-04 05:19] LABS: Bun/Creatinine Ratio 21.2 (12.0-20.0); Calcium, Blood 6.2 mg/dL (8.5-10.1); Creatinine, Blood 2.03 mg/dL (0.60-1.20); Potassium, Blood 3.3 mmol/L (3.5-5.5)
[2022-05-04] MEDS ORDERED: Nicoderm Cq1 EAC1 TOP (16:19)
[2022-05-04] MEDS ORDERED: CLOP75 PO (16:50)
[2022-05-04] MEDS ORDERED: DULO60 PO (16:51)
[2022-05-04] MEDS ORDERED: ASPI81CH PO (16:51)
[2022-05-04] MEDS ORDERED: ATOR40TA PO (17:15)
--- NOTE | 2022-05-04 19:26 | NUR ---
SHIFT SUMMARY PATIENT ALERT AND ORIENTED WITH OCCASIONAL FORGETFULNESS. PLEASANT, COOPERATIVE AND CALLS APPROPRIATELY. GENERALLY WEAK, SBA TO USE URINAL AT BEDSIDE, UP TO CHAIR FOR MEALS, AMBULATED WITH PT IN GARCIA WITH FWW. TOLERATING CARDIAC DIET AND LIQUIDS. IV FLUID RUNNING. COLOSTOMY WITH MODERATE LIQUID OUTPUT. STOOL SAMPLES SENT TO LAB. BANANA FLAKES STARTED. SISTER VISITED DURING AFTERNOON AND MET WITH PHARMACIST IN PATIENT ROOM.
[2022-05-05 05:02] LABS: BASOPHILS ABSOLUTE AUTO 0.04 K/mm3 (0.00-0.23); BASOPHILS PERCENT AUTO 0 % (0-2); EOSINOPHILS ABSOLUTE AUTO 0.06 K/mm3 (0.00-0.68); EOSINOPHILS PERCENT AUTO 1 % (0-6); Hematocrit 25.3 % (37.0-53.0); Hemoglobin 8.4 g/dL (13.5-17.5); IMMATURE GRAN ABSOLUTE AUTO 0.06 K/mm3 (0.00-0.10); IMMATURE GRAN PERCENT AUTO 1 % (0-1); LYMPHOCYTES ABSOLUTE AUTO 1.83 K/mm3 (0.84-5.20); LYMPHOCYTES PERCENT AUTO 18 % (21-46); MONOCYTES ABSOLUTE AUTO 0.73 K/mm3 (0.16-1.47); MONOCYTES PERCENT AUTO 7 % (4-13); Mean Corpuscular HGB 31.5 pg (26.0-34.0); Mean Corpuscular HGB Conc 33.2 g/dL (31.5-36.5); Mean Corpuscular Volume 95 fL (80-100); Mean Platelet Volume 11.4 fL (9.1-12.4); NEUTROPHILS PERCENT AUTO 74 % (41-73); Platelet Count 316 K/mm3 (150-400); RDW Coefficient Variation 15.1 % (11.7-14.2); RDW Standard Deviation 52.3 fL (35.1-46.3); Red Blood Cell Count 2.67 M/mm3 (4.30-5.90); White Blood Cell Count 10.42 K/mm3 (4.00-11.30)
[2022-05-05 05:31] LABS: Albumin, Blood 2.1 g/dL (3.4-5.0); Albumin/Globulin Ratio 0.5 (0.8-1.8); Bilirubin, Total 0.1 mg/dL (0.1-1.0); Bun/Creatinine Ratio 17.7 (12.0-20.0); Calcium, Blood 6.6 mg/dL (8.5-10.1); Creatinine, Blood 1.75 mg/dL (0.60-1.20); Globulin, Blood 4.5 g/dL (2.2-4.0); Magnesium, Blood 1.3 mg/dL (1.6-2.4); Potassium, Blood 3.7 mmol/L (3.5-5.5); Total Protein, Blood 6.6 g/dL (6.4-8.2)
--- NOTE | 2022-05-05 08:06 | NUR ---
SLEPT WELL, VERY GROGGY THIS MORNING. EXTREMELY PALE. STOOL STILL EXTREMELY LIQUIDY THIS MORNING WHEN [facility]ISON EMPTIED IT.
--- NOTE | 2022-05-05 17:57 | NUR ---
ALERT AND ORIENTED 2-3, MAKES NEEDS KNOWN, FLAT AND WITHDRAWN EFFECT AT TIMES, BECOMES IRRITATED WITH CARE INSTRUCTIONS AND THE NEED FOR TREATMENT, SISTER JOANNE CAME IN TODAY, DR JOHNSON MISSED THE SISTER JOANNE, DR BRENNAN INFORMED SISTER JOANNE WANTS TO SPEEK WITH HIM TOMORROW. PATIENT CARES FOR COLOSTOMY INDEPENDENTLY, POOR HYGEINE. MAGNESIUM REPLACEMENT GIVEN, ENCOURAGED FARRAH ANTONIO. WORKED WITH PT TODAY, CALL LIGHT WITH IN REACH, WILL RELAY TO PM RN
[2022-05-06 04:51] LABS: BASOPHILS ABSOLUTE AUTO 0.04 K/mm3 (0.00-0.23); BASOPHILS PERCENT AUTO 0 % (0-2); EOSINOPHILS ABSOLUTE AUTO 0.08 K/mm3 (0.00-0.68); EOSINOPHILS PERCENT AUTO 1 % (0-6); Hematocrit 24.7 % (37.0-53.0); Hemoglobin 8.1 g/dL (13.5-17.5); IMMATURE GRAN ABSOLUTE AUTO 0.11 K/mm3 (0.00-0.10); IMMATURE GRAN PERCENT AUTO 1 % (0-1); LYMPHOCYTES ABSOLUTE AUTO 2.29 K/mm3 (0.84-5.20); LYMPHOCYTES PERCENT AUTO 18 % (21-46); MONOCYTES ABSOLUTE AUTO 0.82 K/mm3 (0.16-1.47); MONOCYTES PERCENT AUTO 6 % (4-13); Mean Corpuscular HGB 31.3 pg (26.0-34.0); Mean Corpuscular HGB Conc 32.8 g/dL (31.5-36.5); Mean Corpuscular Volume 95 fL (80-100); Mean Platelet Volume 11.3 fL (9.1-12.4); NEUTROPHILS ABSOLUTE AUTO 9.64 K/mm3 (1.96-9.15); NEUTROPHILS PERCENT AUTO 74 % (41-73); Platelet Count 293 K/mm3 (150-400); RDW Coefficient Variation 15.1 % (11.7-14.2); RDW Standard Deviation 52.6 fL (35.1-46.3); Red Blood Cell Count 2.59 M/mm3 (4.30-5.90); White Blood Cell Count 12.98 K/mm3 (4.00-11.30)
[2022-05-06 05:18] LABS: Albumin/Globulin Ratio 0.5 (0.8-1.8); Bilirubin, Total 0.3 mg/dL (0.1-1.0); Bun/Creatinine Ratio 19.1 (12.0-20.0); Calcium, Blood 7.4 mg/dL (8.5-10.1); Creatinine, Blood 1.31 mg/dL (0.60-1.20); Globulin, Blood 4.4 g/dL (2.2-4.0); Magnesium, Blood 1.5 mg/dL (1.6-2.4); Potassium, Blood 3.8 mmol/L (3.5-5.5); Total Protein, Blood 6.4 g/dL (6.4-8.2)
--- NOTE | 2022-05-06 07:49 | NUR ---
patient seems to like to keep to himself. he empties his own colostomy, but will not take education on using the judith bottle to actually cleanse the bag. stool is beginning to get less liquidy too
--- NOTE | 2022-05-06 18:36 | NUR ---
SLOW TO RESPOND OR MAKE NEEDS KNOWN, FORMS CLEAR WORDS, USES CALL LIGHT, CARES FOR COLOSTOMY, STOOL MORE BULKY FROM BANNANA FLAKES, PATIENT EDUCATED FOR THE NEED OF THE BANNANA FLAKS TO REDUCE THE LIQUID STOOL. NO ACUTE CHANGES THROUGH OUT THE DAY, SISTER JOANNE VISITED, REPORTED TO JOANNE MULTIPLE TIMES, DR BRENNAN REPORTED EARLIER THAT HE WOULD FOLLOW UP WITH HER, PROCAR DISCONTINUED FOR THE POSSIBLE DIARRHEA REACTION. JOANNE THE SISTER IS WANTING EXTENSIVE EDUCATION ON LAB VALUES, ANTIBIOTICS, BP MEDICATIONS, AND INFECTION, REPORTED THIS TO DR JOHNSON. CALL LIGHT WITH IN REACH
[2022-05-07 05:04] LABS: BASOPHILS ABSOLUTE AUTO 0.04 K/mm3 (0.00-0.23); BASOPHILS PERCENT AUTO 0 % (0-2); EOSINOPHILS ABSOLUTE AUTO 0.09 K/mm3 (0.00-0.68); EOSINOPHILS PERCENT AUTO 1 % (0-6); Hematocrit 23.3 % (37.0-53.0); Hemoglobin 7.6 g/dL (13.5-17.5); IMMATURE GRAN ABSOLUTE AUTO 0.12 K/mm3 (0.00-0.10); IMMATURE GRAN PERCENT AUTO 1 % (0-1); LYMPHOCYTES ABSOLUTE AUTO 2.05 K/mm3 (0.84-5.20); LYMPHOCYTES PERCENT AUTO 17 % (21-46); MONOCYTES ABSOLUTE AUTO 0.98 K/mm3 (0.16-1.47); MONOCYTES PERCENT AUTO 8 % (4-13); Mean Corpuscular HGB 31.3 pg (26.0-34.0); Mean Corpuscular HGB Conc 32.6 g/dL (31.5-36.5); Mean Corpuscular Volume 96 fL (80-100); Mean Platelet Volume 11.4 fL (9.1-12.4); NEUTROPHILS PERCENT AUTO 73 % (41-73); Platelet Count 300 K/mm3 (150-400); RDW Standard Deviation 52.3 fL (35.1-46.3); Red Blood Cell Count 2.43 M/mm3 (4.30-5.90); White Blood Cell Count 12.18 K/mm3 (4.00-11.30)
[2022-05-07 05:39] LABS: Albumin, Blood 1.9 g/dL (3.4-5.0); Albumin/Globulin Ratio 0.5 (0.8-1.8); Bilirubin, Total 0.2 mg/dL (0.1-1.0); Bun/Creatinine Ratio 15.3 (12.0-20.0); Calcium, Blood 7.6 mg/dL (8.5-10.1); Creatinine, Blood 1.24 mg/dL (0.60-1.20); Globulin, Blood 4.2 g/dL (2.2-4.0); Magnesium, Blood 1.2 mg/dL (1.6-2.4); Total Protein, Blood 6.1 g/dL (6.4-8.2)
--- NOTE | 2022-05-07 05:42 | NUR ---
SHIFT SUMMARY 66 YR M ADMITTED ON 05/05/22 FOR HYPERMAGNESIA AND HYPERNATREMIA. FULL CODE. NO ACUTE CHANGES THIS SHIFT. PT MANAGES HIS OWN COLOSTOMY AND EMPTIES THE BAG HIMSELF. A HAT WAS PUT IN THE GARBAGE CAN FOR HIM TO USE INSTEAD OF DUMPING IT STRAIGHT INTO THE GARBAGE BAG. THIS HAS CUT DOWN ON THE SMELL THAT IS EMITTING INTO THE HALLWAY BECAUSE THE HAT IS ABLE TO BE DUMPED AND RINSED IN THE TOILET. STOOLS ARE LOOSE BUT NOT WATERY. PT IS PLEASANT AND COOPERATIVE WITH CARE AND CALLS WHEN URINAL OR HAT NEED TO BE EMPTIED.HE SLEPT OFF AND ON FOR MOST OF THE SHIFT.
[2022-05-07 07:56] LABS: SARS-Cov-2 (COVID-19) PCR, MMC POSITIVE (NEGATIVE)
--- NOTE | 2022-05-07 17:19 | NUR ---
SLOW TO RESPOND, MAKES NEEDS KNOWN, REPORTED H&H AT 7.6 & 23.3 AND WBC INCREASED TO 12.18, IRON PILL STARTED, NO NEW ORDERS YET, REPORTED TO DR JOHNSON SISTER JOANNE IS STILL WAITING FOR A PHONE CALL FROM HIM. POSITIVE COVID 19 TEST THIS AM HELD DISCHARGED TO [facility] FOR TODAY, ISOLATION STARTED, COLOSTMY STOOL SOFT BUT NOT WATER, PATIENT ATE BANNANA FLAKS. PATIENT CONFUSED AT TIMES BUT REORIENTS QUICKLY, CALL LIGHT WITH IN REACH, WILL RELAY TO PM DEVAUGHN
[2022-05-08 05:13] LABS: BASOPHILS ABSOLUTE AUTO 0.04 K/mm3 (0.00-0.23); BASOPHILS PERCENT AUTO 0 % (0-2); EOSINOPHILS PERCENT AUTO 1 % (0-6); Hematocrit 27.2 % (37.0-53.0); IMMATURE GRAN ABSOLUTE AUTO 0.17 K/mm3 (0.00-0.10); IMMATURE GRAN PERCENT AUTO 1 % (0-1); LYMPHOCYTES ABSOLUTE AUTO 2.15 K/mm3 (0.84-5.20); LYMPHOCYTES PERCENT AUTO 18 % (21-46); MONOCYTES ABSOLUTE AUTO 1.03 K/mm3 (0.16-1.47); MONOCYTES PERCENT AUTO 9 % (4-13); Mean Corpuscular HGB 31.1 pg (26.0-34.0); Mean Corpuscular HGB Conc 33.1 g/dL (31.5-36.5); Mean Corpuscular Volume 94 fL (80-100); Mean Platelet Volume 10.7 fL (9.1-12.4); NEUTROPHILS ABSOLUTE AUTO 8.59 K/mm3 (1.96-9.15); NEUTROPHILS PERCENT AUTO 71 % (41-73); Platelet Count 362 K/mm3 (150-400); RDW Coefficient Variation 15.1 % (11.7-14.2); RDW Standard Deviation 52.7 fL (35.1-46.3); Red Blood Cell Count 2.89 M/mm3 (4.30-5.90); White Blood Cell Count 12.08 K/mm3 (4.00-11.30)
--- NOTE | 2022-05-08 05:36 | NUR ---
SUMMARY: PT A/OX3, SPECIFIES NEEDS AND IS PLEASANT AND COOPERATIVE W/CARE. HE CAN BECOME MILDLY CONFUSED AT TIMESS BUT REORIENTS QUICKLY W/REMINDERS. PT MANAGES COLOSTOMY HIMSELF AND OUTPUT IS SLIGHTLY MORE FORMED SINCE RECIEVING BANANA FLAKES. HE'S IN COVID ISO W/OCC MOIST COUGH BUT TOLERATES RA W/O S/S RESP DISTRESS. MG, NA AND HGB ALL IMPROVED THIS AM. NO ACUTE CHANGES, VSS AND AFEBRILE. WCTM AND REPORT TO DAY RN.
[2022-05-08 05:42] LABS: Albumin, Blood 2.2 g/dL (3.4-5.0); Albumin/Globulin Ratio 0.4 (0.8-1.8); Bilirubin, Total 0.2 mg/dL (0.1-1.0); Calcium, Blood 8.5 mg/dL (8.5-10.1); Creatinine, Blood 1.21 mg/dL (0.60-1.20); Magnesium, Blood 1.6 mg/dL (1.6-2.4); Potassium, Blood 4.3 mmol/L (3.5-5.5); Total Protein, Blood 7.2 g/dL (6.4-8.2)
--- NOTE | 2022-05-08 17:12 | NUR ---
SHIFT SUMMARY NO ACUTE CHANGES DURING SHIFT. PT ALERT AND ORIENTED, CALLS APPROPRIATELY. PT MANAGES COLOSTOMY INDEPENDENTLY. VOIDING PER URINAL. PT REMAINS ON RA. INDEPENDENT IN ROOM. PT STATES LOOSE STOOLS SLIGHTLY IMPROVED SINCE BANANA FLAKES STARTED. WILL CONTINUE TO MONITOR. CALL LIGHT WITHIN REACH.
--- NOTE | 2022-05-09 04:53 | NUR ---
SUMMARY: PT A/OX4, CALLS APPROPRIATELY TO SPECIFY NEEDS AND IS AWARE OF LIMITATIONS SO ALERTS STAFF FOR ASSIST PRN. HE SELF CARES FOR COLOSTOMY AND PREFERS HIS OWN HOME SUPPLIES BUT DID REQUIRE ONE OF OUR BAGS REPLACEMENT AFTER ACCIDENTALLY MISPLACING HIS HOME CLIP. HE WAS ATTEMPTING TO CHANGE HIS APPARATUS AFTER HIS OSTOMY LEAKED ALL OVER HIS GOWN, FLOOR, BLANKETS AND ATTENDS BUT HE APPEARED TO DISCARD HIS CLIP IN THE PROCESS. NEW LINEN WAS PROVIDED AND STAFF ASSISTED TO HELP CLEAN PATIENT AND ROOM. HE USES URINAL AD LON, REMAINS ON RA AND HAS IV SL'D. NO ACUTE CHANGES, VSS/AFEBRILE. D/C PENDING COVID CLEARANCE TO SNF. NABIL AND REPORT TO DAY RN.
--- NOTE | 2022-05-09 06:40 | NUR ---
PT WAS PROVIDED ONE OF OUR OSTOMY BAGS AND SIZE 2 3/4 INCH APPARATUSES. HE'S DECIDED HE PREFERS IT TO HIS OWN AND NOW WOULD LIKE TO USE OUR SUPPLIES FOR THE REMAINDER OF HIS STAY. WILL ENSURE DAY STAFF ARE AWARE.
[2022-05-09 08:15] LABS: BASOPHILS ABSOLUTE AUTO 0.03 K/mm3 (0.00-0.23); BASOPHILS PERCENT AUTO 0 % (0-2); EOSINOPHILS ABSOLUTE AUTO 0.06 K/mm3 (0.00-0.68); EOSINOPHILS PERCENT AUTO 0 % (0-6); Hematocrit 24.2 % (37.0-53.0); Hemoglobin 7.9 g/dL (13.5-17.5); IMMATURE GRAN ABSOLUTE AUTO 0.22 K/mm3 (0.00-0.10); IMMATURE GRAN PERCENT AUTO 2 % (0-1); LYMPHOCYTES ABSOLUTE AUTO 1.91 K/mm3 (0.84-5.20); LYMPHOCYTES PERCENT AUTO 13 % (21-46); MONOCYTES ABSOLUTE AUTO 1.19 K/mm3 (0.16-1.47); MONOCYTES PERCENT AUTO 8 % (4-13); Mean Corpuscular HGB 31.1 pg (26.0-34.0); Mean Corpuscular HGB Conc 32.6 g/dL (31.5-36.5); Mean Corpuscular Volume 95 fL (80-100); Mean Platelet Volume 11.1 fL (9.1-12.4); NEUTROPHILS ABSOLUTE AUTO 11.09 K/mm3 (1.96-9.15); NEUTROPHILS PERCENT AUTO 77 % (41-73); Platelet Count 341 K/mm3 (150-400); RDW Coefficient Variation 14.9 % (11.7-14.2); RDW Standard Deviation 52.4 fL (35.1-46.3); Red Blood Cell Count 2.54 M/mm3 (4.30-5.90)
[2022-05-09 08:16] LABS: Bun/Creatinine Ratio 18.4 (12.0-20.0); Calcium, Blood 8.2 mg/dL (8.5-10.1); Creatinine, Blood 1.36 mg/dL (0.60-1.20); Magnesium, Blood 1.4 mg/dL (1.6-2.4); Potassium, Blood 4.4 mmol/L (3.5-5.5)
--- NOTE | 2022-05-09 16:38 | NUR ---
PT IS A/OX3, PLEASANT AND COOPERATIVE. THE PT IS UP IND IN HIS ROOM USEING HIS CAN. PT APPEARS TO BE BREATHING EASILY ON RA AT THIS TIME. THE PT DENIED ANY PAIN T/O THE DAY. THE PT TOOK OFF HIS OSTOMY APPLIANCE THIS AFTERNOON AND A NEW APPLIANCE WAS PLACED. PTS STOOL HAS THICKENED TO PUDDING THICK COMPARED TO LIQUID STOOL THIS AM. CALL LIGHT IN REACH, WILL CONTINUE TO MONITOR AND ASSESS FOR CHANGES
--- NOTE | 2022-05-10 04:08 | NUR ---
SHIFT MOSTLY UNREMARKABLE. PATIENT WAS NOT ABLE TO SLEEP FOR MUCH OF SHIFT AND SPENT MUCH OF HIS TIME FIDGETING WITH HIS OSTOMY BAG. REASSURED THAT SITE IS WNL AND THAT THE BAG IS FUNCITONING INTENDED. CALL LIGHT LEFT WITHIN REACH.
[2022-05-10 06:06] LABS: Bun/Creatinine Ratio 21.1 (12.0-20.0); Calcium, Blood 8.8 mg/dL (8.5-10.1); Creatinine, Blood 1.47 mg/dL (0.60-1.20); Magnesium, Blood 1.5 mg/dL (1.6-2.4); Potassium, Blood 4.6 mmol/L (3.5-5.5)
--- NOTE | 2022-05-10 16:52 | NUR ---
PT IS HAVING DIFFICULTY MOVING LLE AND EDEMA TO LLE. PT REPORTS PAIN TO LLE MD NOTIFIED AND ULTRASOUND ORDERED. PT WAS ABLE TO MOVE FROM BED TO CHAIR WITH NURSE ASSIST AND USE OF CANE. THROUGHOUT THE DAY, OSTOMY EMPTIED 2X. STOOL APPEARED TO BE THICKING FROM PREVIOUS STOOL. PT IS ALERT AND ORIENTED AND HAS A MENTAL DELAY. PT SEEMS TO BE RESTING COMFORTABLY.
[2022-05-11 05:08] LABS: BASOPHILS ABSOLUTE AUTO 0.03 K/mm3 (0.00-0.23); BASOPHILS PERCENT AUTO 0 % (0-2); EOSINOPHILS ABSOLUTE AUTO 0.12 K/mm3 (0.00-0.68); EOSINOPHILS PERCENT AUTO 1 % (0-6); Hematocrit 21.8 % (37.0-53.0); Hemoglobin 7.1 g/dL (13.5-17.5); IMMATURE GRAN ABSOLUTE AUTO 0.19 K/mm3 (0.00-0.10); IMMATURE GRAN PERCENT AUTO 2 % (0-1); LYMPHOCYTES ABSOLUTE AUTO 2.14 K/mm3 (0.84-5.20); LYMPHOCYTES PERCENT AUTO 18 % (21-46); MONOCYTES ABSOLUTE AUTO 0.97 K/mm3 (0.16-1.47); MONOCYTES PERCENT AUTO 8 % (4-13); Mean Corpuscular HGB 30.5 pg (26.0-34.0); Mean Corpuscular HGB Conc 32.6 g/dL (31.5-36.5); Mean Corpuscular Volume 94 fL (80-100); Mean Platelet Volume 10.7 fL (9.1-12.4); NEUTROPHILS ABSOLUTE AUTO 8.67 K/mm3 (1.96-9.15); NEUTROPHILS PERCENT AUTO 72 % (41-73); Platelet Count 320 K/mm3 (150-400); RDW Standard Deviation 51.2 fL (35.1-46.3); Red Blood Cell Count 2.33 M/mm3 (4.30-5.90); White Blood Cell Count 12.12 K/mm3 (4.00-11.30)
[2022-05-11 05:29] LABS: Bun/Creatinine Ratio 22.1 (12.0-20.0); Calcium, Blood 8.8 mg/dL (8.5-10.1); Creatinine, Blood 1.49 mg/dL (0.60-1.20); Magnesium, Blood 1.3 mg/dL (1.6-2.4); Potassium, Blood 4.4 mmol/L (3.5-5.5)
--- NOTE | 2022-05-11 17:05 | NUR ---
SHIFT SUMMARY PT AOX4, SISTER HAS BEEN AT THE BS TODAY. SHE SPOKE WITH THE DOCTOR ABOUT ALL OF HER CONCERNS. STOOL SAMPLE SENT TO THE LAB. PLACEMENT IS STILL BEING DISCUSSED, NO SOLID ANSWERS THIS TIME. PT ABLE TO TRANSFER WELL FROM HIS CHAIR TO THE BED, A GAIT BELT HAS BEEN PLACED IN HIS ROOM TO HELP MOVE HIS LEFT LEG INTO BED. PT HAS NO C/O P/N/V THIS SHIFT. NO C/O OF CHEST PAIN. WILL REPORT TO ONCOMING NURSE.
--- NOTE | 2022-05-12 04:37 | NUR ---
SHIFT SUMMARY PATIENT HAD NO ACUTE CHANGES OBSERVED. AXOX 3 AND SLOW TO RESPOND. TAKING BANATROL PER EMAR. LOOSE LIQUID STOOLS VIA OSTOMY BAG LLQ. PATIENT PULLS AT OSTOMY. NO IV ACCESS. CONDOM CATHETER USED AT TIMES. DENIES PAIN, SOB, AND N/V. VSS/AFEBRILE. ONE ASSIST WITH CANE TO BSC. USES URINAL AT BEDSIDE. CALL LIGHT IN REACH. BED IN LOWEST POSITION. WILL CONTINUE TO MONITOR UNTIL DAY SHIFT NURSE ASSUMES CARE.
[2022-05-12 06:27] LABS: BASOPHILS ABSOLUTE AUTO 0.02 K/mm3 (0.00-0.23); BASOPHILS PERCENT AUTO 0 % (0-2); EOSINOPHILS ABSOLUTE AUTO 0.13 K/mm3 (0.00-0.68); EOSINOPHILS PERCENT AUTO 1 % (0-6); Hematocrit 23.3 % (37.0-53.0); Hemoglobin 7.6 g/dL (13.5-17.5); IMMATURE GRAN ABSOLUTE AUTO 0.22 K/mm3 (0.00-0.10); IMMATURE GRAN PERCENT AUTO 2 % (0-1); LYMPHOCYTES ABSOLUTE AUTO 1.97 K/mm3 (0.84-5.20); LYMPHOCYTES PERCENT AUTO 15 % (21-46); MONOCYTES ABSOLUTE AUTO 1.07 K/mm3 (0.16-1.47); MONOCYTES PERCENT AUTO 8 % (4-13); Mean Corpuscular HGB 30.9 pg (26.0-34.0); Mean Corpuscular HGB Conc 32.6 g/dL (31.5-36.5); Mean Corpuscular Volume 95 fL (80-100); Mean Platelet Volume 10.5 fL (9.1-12.4); NEUTROPHILS ABSOLUTE AUTO 9.71 K/mm3 (1.96-9.15); NEUTROPHILS PERCENT AUTO 74 % (41-73); NRBC ABSOLUTE 0.02 K/mm3 (0.00-0.02); NRBC Auto 0.2 /100 WBC (0.0-0.2); Platelet Count 346 K/mm3 (150-400); RDW Coefficient Variation 14.6 % (11.7-14.2); RDW Standard Deviation 50.7 fL (35.1-46.3); Red Blood Cell Count 2.46 M/mm3 (4.30-5.90); White Blood Cell Count 13.12 K/mm3 (4.00-11.30)
[2022-05-12 06:43] LABS: Bun/Creatinine Ratio 24.5 (12.0-20.0); Calcium, Blood 8.8 mg/dL (8.5-10.1); Creatinine, Blood 1.55 mg/dL (0.60-1.20); Magnesium, Blood 1.3 mg/dL (1.6-2.4); Potassium, Blood 4.3 mmol/L (3.5-5.5)
[2022-05-12 10:18] LABS: Stool Occult Blood Guaiac 1 Neg (Neg)
--- NOTE | 2022-05-12 17:40 | NUR ---
SHIFT SUMMARY PT A&OX4 AND IN PLEASENT MOOD T/O SHIFT. TOLERATING PO INTAKE WELL, BANANA FLAKES ADMIN T/O SHIFT FOR C/O LOOSE STOOLS. OSTOMY DRAINING. VSS. RESTED IN BED T/O SHIFT. CALL LIGHT W/IN REACH. AWAITING PLACEMENT/SAFE DC PLAN @ THIS TIME.
--- NOTE | 2022-05-13 04:38 | NUR ---
Shift Summary No acute events. Pt AOx3. In continent voids, condom catheter was placed tonight and is draining yellow urine. Thick liquid stools via ostomy bag LLQ. No C/O pain, N/V or SoB. L leg maintaning good circulation, pedal pulse palpaable and good cap refill. VSS, no acute events, slept through most of the night, awaiting placement.
--- NOTE | 2022-05-13 17:36 | NUR ---
SHIFT SUMMARY: PATIENT A&OX4. CALM, PLEASANT AND COOPERATIVE c CARE. USES CALL LIGHT APPROPRIATELY AND ABLE TO ADVOCATE FOR HIS NEEDS. PATIENT STILL ON ENHANCE ISOLATION FOR COVID POSITIVE. DENIES CP/CHEST DISCOMFORT. PATIENT ON RA, c SPO2 ABOVE 96% T/O SHIFT. LUNGS HAS INS/EXP WHEEZES T/O TO AUSCULATION. PROVIDED c INCENTIVE SPIROMETRY FOR BX EXCERCISE.BPATIENT HAS BEEN USING WHEN AWAKE T/O SHIFT AND TOLERATED WELL. PATIENT WAS SITTING UP IN THE CHAIR FOR LUNCH AND DINNER. PATIENT HAS BEEN CONT/INCT VOID. USES URINAL AND ATTENDS INPLACE. OSTOMY APPLIANCE TO RLQ OF ABDOMEN HAS BEEN PRODUCING LIQUID BLACK STOOL. NO IV ACCESS PER ORDER. VITAL SIGNS REVIEWED. CALL LIGHT IN REACH.
--- NOTE | 2022-05-14 04:56 | NUR ---
Shift Summary AOx4, 1 SBA with cane to the bathroom. Pt continent tonight but does not call appropriatly to use restroom. Pt states L leg has occasional shooting pains. L leg circulation intact, palpable weak pedal pulse and fast cap refill in the toes. Skin on L leg is warm and dry. VSS, no acute events, pleasant and cooperative with care.
[2022-05-14 04:58] LABS: BASOPHILS ABSOLUTE AUTO 0.04 K/mm3 (0.00-0.23); BASOPHILS PERCENT AUTO 0 % (0-2); EOSINOPHILS ABSOLUTE AUTO 0.21 K/mm3 (0.00-0.68); EOSINOPHILS PERCENT AUTO 2 % (0-6); Hematocrit 23.5 % (37.0-53.0); Hemoglobin 7.6 g/dL (13.5-17.5); IMMATURE GRAN ABSOLUTE AUTO 0.25 K/mm3 (0.00-0.10); IMMATURE GRAN PERCENT AUTO 2 % (0-1); LYMPHOCYTES ABSOLUTE AUTO 2.76 K/mm3 (0.84-5.20); LYMPHOCYTES PERCENT AUTO 21 % (21-46); MONOCYTES ABSOLUTE AUTO 0.97 K/mm3 (0.16-1.47); MONOCYTES PERCENT AUTO 8 % (4-13); Mean Corpuscular HGB Conc 32.3 g/dL (31.5-36.5); Mean Corpuscular Volume 96 fL (80-100); Mean Platelet Volume 10.6 fL (9.1-12.4); NEUTROPHILS PERCENT AUTO 67 % (41-73); Platelet Count 375 K/mm3 (150-400); RDW Coefficient Variation 14.7 % (11.7-14.2); RDW Standard Deviation 51.8 fL (35.1-46.3); Red Blood Cell Count 2.45 M/mm3 (4.30-5.90); White Blood Cell Count 12.93 K/mm3 (4.00-11.30)
[2022-05-14 05:35] LABS: Albumin, Blood 1.9 g/dL (3.4-5.0); Albumin/Globulin Ratio 0.4 (0.8-1.8); Bilirubin, Total 0.2 mg/dL (0.1-1.0); Bun/Creatinine Ratio 27.5 (12.0-20.0); Calcium, Blood 8.8 mg/dL (8.5-10.1); Creatinine, Blood 1.67 mg/dL (0.60-1.20); Globulin, Blood 4.9 g/dL (2.2-4.0); Magnesium, Blood 1.5 mg/dL (1.6-2.4); Potassium, Blood 4.8 mmol/L (3.5-5.5); Total Protein, Blood 6.8 g/dL (6.4-8.2)
--- NOTE | 2022-05-14 18:00 | NUR ---
SHIFT SUMMARY: PATIENT A&OX4. CALM, PLEASANT AND COOPERATIVE c CARE. USES CALL LIGHT APPROPRIATELY AND ABLE TO ADVOCATE FOR HIS NEEDS. PATIENT RECEIVED 2 IV MAG SULFATE THIS SHIFT. PATIENT HAS BEEN SITTING UP IN THE CHAIR T/O THE DAY. AMBULATES IN ROOM X3 c SBA, FWW AND GAITBELT AND TOLERATED WELL. DENIES SOB, PAIN. DENIES CP/CHEST DISCOMFORT, N/V. OSTOMY APPLIANCE HAS BEEN PRODUCING LIQUID DARK GREEN STOOL. PATIENT SISTER CAMEBY TODAY AND REQUESTING TO HAVE GI CONSULT ON PATIENT BEFORE DISCHARGING HOME ON SUNDAY. ALSO, SISTER EXPRESS CONCERN c PATIENT MEDICATIONS ISOSORBIDE AND METOPROLOL. PER SISTER "I WANT THOSE 2 MEDICATION DISCONTINUED BECAUSE I READ THIER SIDE EFFECTS ON IT AND IT'S NOT GOOD ON HIS CONDITION." THIS RN REASSURE SISTER TO PASS THIS CONCERN TO THE REST OF THE HEALTHCARE TEAM WORKING c PATIENT. SISTER STATED UNDERSTANDING AND NO FURTHER CONCERN AT THIS TIME. IV TO R FOREARM SALINE LOCKED. VITAL SIGNS REVIEWED. CALL LIGHT IN REACH.
[2022-05-15 05:14] LABS: BASOPHILS ABSOLUTE AUTO 0.04 K/mm3 (0.00-0.23); BASOPHILS PERCENT AUTO 0 % (0-2); EOSINOPHILS ABSOLUTE AUTO 0.21 K/mm3 (0.00-0.68); EOSINOPHILS PERCENT AUTO 2 % (0-6); Hematocrit 25.9 % (37.0-53.0); Hemoglobin 8.3 g/dL (13.5-17.5); IMMATURE GRAN ABSOLUTE AUTO 0.25 K/mm3 (0.00-0.10); IMMATURE GRAN PERCENT AUTO 2 % (0-1); LYMPHOCYTES ABSOLUTE AUTO 2.46 K/mm3 (0.84-5.20); LYMPHOCYTES PERCENT AUTO 17 % (21-46); MONOCYTES ABSOLUTE AUTO 0.79 K/mm3 (0.16-1.47); MONOCYTES PERCENT AUTO 6 % (4-13); Mean Corpuscular Volume 97 fL (80-100); Mean Platelet Volume 10.7 fL (9.1-12.4); NEUTROPHILS ABSOLUTE AUTO 10.59 K/mm3 (1.96-9.15); NEUTROPHILS PERCENT AUTO 74 % (41-73); Platelet Count 395 K/mm3 (150-400); RDW Coefficient Variation 14.6 % (11.7-14.2); RDW Standard Deviation 51.3 fL (35.1-46.3); Red Blood Cell Count 2.68 M/mm3 (4.30-5.90); White Blood Cell Count 14.34 K/mm3 (4.00-11.30)
[2022-05-15 05:49] LABS: Albumin, Blood 2.1 g/dL (3.4-5.0); Albumin/Globulin Ratio 0.4 (0.8-1.8); Bilirubin, Total 0.2 mg/dL (0.1-1.0); Bun/Creatinine Ratio 27.8 (12.0-20.0); Calcium, Blood 9.1 mg/dL (8.5-10.1); Creatinine, Blood 1.69 mg/dL (0.60-1.20); Globulin, Blood 5.3 g/dL (2.2-4.0); Potassium, Blood 5.1 mmol/L (3.5-5.5); Total Protein, Blood 7.4 g/dL (6.4-8.2)
--- NOTE | 2022-05-15 06:18 | NUR ---
Patient AOX4, Lungs clear, declines SOB. Blood pressure and HR wnl. Colostomy pink, intact and draining via gravity, no s/s of infection to site. Passing gas, and declines abdominal discomfort.Able to swallow meds whole and ambulate with a walker.
--- NOTE | 2022-05-15 16:19 | NUR ---
SHIFT SUMMARY PT A&OX4 AND COOPERATIVE OF CARE. 1 ASSIST WITH [place]. PT ABLE TO CARE FOR OSTOMY INDEPENDENTLY BUT WILL ASK FOR HELP. CONTINENT OF URINE AND WILL USE URINAL OR ASK FOR ASSISTANCE TO BATHROOM. PHYSICAL THERAPY WORKED WITH PT TODAY AND RECOMMENDED SKILLED REHAB. PT AWAITING PLACEMENT, POSSIBLY AT [facility] ON SUNDAY. PT C/O PAIN IN RIGHT HIP AND LOWER LEG IN AFTERNOON. MEDICATED PER EMAR. SISTER AT BEDSIDE AND SPOKE WITH DR. COHN ABOUT CONCERS ABOUT PT'S MEDICATIONS AND LAB VALUES. SISTER VERBALIZED HAVING ALL QUESTIONS ANSWERED BY DR. COHN. BED IN LOWEST POSITION AND CALL LIGHT IN REACH.
[2022-05-15 20:31] LABS: Adenovirus F 40/41 Not Detected (NOT DETECT); Astrovirus Not Detected (NOT DETECT); Campylobacter Sp Not Detected (NOT DETECT); Cryptosporidium Not Detected (NOT DETECT); Cyclospora Cayetanensis Not Detected (NOT DETECT); E. Coli O157 Not Detected (NOT DETECT); Entamoeba Histolytica Not Detected (NOT DETECT); Enteroaggregative E. coli-EAEC Not Detected (NOT DETECT); Enteropathogenic E. coli-EPEC Not Detected (NOT DETECT); Enterotoxigenic E. coli-ETEC Not Detected (NOT DETECT); Giardia Lamblia Not Detected (NOT DETECT); Norovirus GI/GII Not Detected (NOT DETECT); Plesiomonas Shigelloides Not Detected (NOT DETECT); Rotavirus A Not Detected (NOT DETECT); Salmonella Sp Not Detected (NOT DETECT); Sapovirus Not Detected (NOT DETECT); Shiga Toxin-prod E. coli-STEC Not Detected (NOT DETECT); Shigella/Enteroin E. coli-EIEC Not Detected (NOT DETECT); Vibrio Cholerae Not Detected (NOT DETECT); Vibrio Sp Not Detected (NOT DETECT); Yersinia Enterocolitica Not Detected (NOT DETECT)
[2022-05-16 04:36] LABS: BASOPHILS ABSOLUTE AUTO 0.04 K/mm3 (0.00-0.23); BASOPHILS PERCENT AUTO 0 % (0-2); EOSINOPHILS ABSOLUTE AUTO 0.17 K/mm3 (0.00-0.68); EOSINOPHILS PERCENT AUTO 1 % (0-6); Hematocrit 23.5 % (37.0-53.0); Hemoglobin 7.7 g/dL (13.5-17.5); IMMATURE GRAN ABSOLUTE AUTO 0.24 K/mm3 (0.00-0.10); IMMATURE GRAN PERCENT AUTO 2 % (0-1); LYMPHOCYTES ABSOLUTE AUTO 2.47 K/mm3 (0.84-5.20); LYMPHOCYTES PERCENT AUTO 18 % (21-46); MONOCYTES ABSOLUTE AUTO 1.03 K/mm3 (0.16-1.47); MONOCYTES PERCENT AUTO 8 % (4-13); Mean Corpuscular HGB 31.3 pg (26.0-34.0); Mean Corpuscular HGB Conc 32.8 g/dL (31.5-36.5); Mean Corpuscular Volume 96 fL (80-100); Mean Platelet Volume 10.6 fL (9.1-12.4); NEUTROPHILS ABSOLUTE AUTO 9.83 K/mm3 (1.96-9.15); NEUTROPHILS PERCENT AUTO 71 % (41-73); Platelet Count 373 K/mm3 (150-400); RDW Coefficient Variation 14.6 % (11.7-14.2); RDW Standard Deviation 50.7 fL (35.1-46.3); Red Blood Cell Count 2.46 M/mm3 (4.30-5.90); White Blood Cell Count 13.78 K/mm3 (4.00-11.30)
[2022-05-16 04:59] LABS: Albumin/Globulin Ratio 0.4 (0.8-1.8); Bilirubin, Total 0.2 mg/dL (0.1-1.0); Bun/Creatinine Ratio 28.9 (12.0-20.0); Calcium, Blood 8.8 mg/dL (8.5-10.1); Creatinine, Blood 1.66 mg/dL (0.60-1.20); Globulin, Blood 4.8 g/dL (2.2-4.0); Magnesium, Blood 2.5 mg/dL (1.6-2.4); Potassium, Blood 5.8 mmol/L (3.5-5.5); Total Protein, Blood 6.8 g/dL (6.4-8.2)
--- NOTE | 2022-05-16 06:33 | NUR ---
Patient is alert oriented to self and place. Continues to be argumentative with staff regarding is care. He initially declined his new medication vancomycin, but letter agreed to take it. Ostomy is patent and draining brown/whitich stool. IV Fluids administered as ordered.
[2022-05-16 09:46] LABS: Stool Occult Blood Guaiac 1 Neg (Neg)
--- NOTE | 2022-05-16 17:48 | NUR ---
SHIFT SUMMARY PT A&OX4 AND COOPERATIVE OF CARE. PT'S BP WAS 96/53 IN AM SO BP MEDICATIONS HELD. DR COHN NOTIFIED. PHYSICAL THERAPY WORKED WITH PT TODAY. PER PHYSICAL THERAPIST, PT TOLERATED WELL AND WAS AT BASELINE. NO C/O PAIN OR SOB. PT TO HAVE ANGIOGRAM TOMORROW, 05/17/22, AND TO BE NPO AFTER BREAKFAST. PT AND SISTER CHANGED OSTOMY BAG THIS AFTERNOON, PER SISTER. PT CONTINUES TO HAVE LOOSE STOOL BUT LESS FOUL SMELLING. BED IN LOWEST POSITION AND CALL LIGHT IN REACH.
[2022-05-17 04:45] LABS: BASOPHILS ABSOLUTE AUTO 0.04 K/mm3 (0.00-0.23); BASOPHILS PERCENT AUTO 0 % (0-2); EOSINOPHILS ABSOLUTE AUTO 0.25 K/mm3 (0.00-0.68); EOSINOPHILS PERCENT AUTO 2 % (0-6); Hematocrit 25.2 % (37.0-53.0); Hemoglobin 8.2 g/dL (13.5-17.5); IMMATURE GRAN ABSOLUTE AUTO 0.26 K/mm3 (0.00-0.10); IMMATURE GRAN PERCENT AUTO 2 % (0-1); LYMPHOCYTES ABSOLUTE AUTO 2.71 K/mm3 (0.84-5.20); LYMPHOCYTES PERCENT AUTO 24 % (21-46); MONOCYTES ABSOLUTE AUTO 0.94 K/mm3 (0.16-1.47); MONOCYTES PERCENT AUTO 8 % (4-13); Mean Corpuscular HGB 30.9 pg (26.0-34.0); Mean Corpuscular HGB Conc 32.5 g/dL (31.5-36.5); Mean Corpuscular Volume 95 fL (80-100); Mean Platelet Volume 10.6 fL (9.1-12.4); NEUTROPHILS PERCENT AUTO 63 % (41-73); Platelet Count 422 K/mm3 (150-400); RDW Coefficient Variation 14.6 % (11.7-14.2); RDW Standard Deviation 50.6 fL (35.1-46.3); Red Blood Cell Count 2.65 M/mm3 (4.30-5.90)
--- NOTE | 2022-05-17 05:02 | NUR ---
Patient is AOX4, has been compliant with treatment regiment this shift and swallowed all his medications whole. Maintained Sats >92% on room air. Declines pain or discomfort during shift. Lung sounds clear bilateral bases and diminished bilateral apex. Colostomy bag site clean and paten, emptied 550 cc of green fecal output.
[2022-05-17 05:03] LABS: Albumin, Blood 2.2 g/dL (3.4-5.0); Albumin/Globulin Ratio 0.4 (0.8-1.8); Bilirubin, Total 0.2 mg/dL (0.1-1.0); Bun/Creatinine Ratio 29.4 (12.0-20.0); Calcium, Blood 9.1 mg/dL (8.5-10.1); Creatinine, Blood 1.6 mg/dL (0.60-1.20); Globulin, Blood 5.2 g/dL (2.2-4.0); Magnesium, Blood 2.2 mg/dL (1.6-2.4); Potassium, Blood 5.2 mmol/L (3.5-5.5); Total Protein, Blood 7.4 g/dL (6.4-8.2)
--- NOTE | 2022-05-17 18:13 | NUR ---
SHIFT SUMMARY PLANS FOR ANGIO TO LLE HAVE BEEN CANCELLED. DRS. COHN AND CARLOS SPOKE WITH PT AND HIS SISTER. HAS BEEN INDEPENDENT WITH CARE. NO CHANGES TODAY. POSSIBLE DISCHARGE TOMORROW.
[2022-05-18 05:23] LABS: Albumin/Globulin Ratio 0.4 (0.8-1.8); Bilirubin, Total 0.2 mg/dL (0.1-1.0); Bun/Creatinine Ratio 29.4 (12.0-20.0); Calcium, Blood 8.8 mg/dL (8.5-10.1); Creatinine, Blood 1.8 mg/dL (0.60-1.20); Globulin, Blood 4.9 g/dL (2.2-4.0); Potassium, Blood 4.9 mmol/L (3.5-5.5); Total Protein, Blood 6.9 g/dL (6.4-8.2)
--- NOTE | 2022-05-18 06:45 | NUR ---
Compliant with treatment and took all medications without issues. Ambulated to using cane, and assisted in doing ADL's. Taking Vancomycin Q6. Ostomy paten and put out 450ml of green-liquid stool.
--- NOTE | 2022-05-18 17:47 | NUR ---
SHIFT SUMMARY PATIENT DENIES PAIN, NAUSEA, AND SHORTNESS OF BREATH. PATIENT IS IND IN ROOM WITH CANE. IV FAILED THIS AM. ORDERS FOR NS X ONE BAG. MULTIPLE ATTEMPTS BY MULTIPLE NURSES, FINALLY GOT IV ACCESS. PATIENT DID NOT TOLERATE WELL. PATIENT SISTER UPDATE AT PATIENT REQUEST. SISTER ALSO REQUESTING DOCTOR CALL HER, NOTIFIED DR. COHN. PATIENT CARES FOR OSTOMY ON OWN. PATIENT IS EATING AND DRINKING WELL. PATIENT HAD MULTIPLE COMPLAINTS THROUGHOUT DAY ABOUT STAFF AND HOSPITAL.
--- NOTE | 2022-05-19 04:24 | NUR ---
SHIFT SUMMARY PATIENT HAD NO ACUTE CHANGES. AXOX 3-4 AND INDEPENDENT IN ROOM USING A CANE. PIV REMAINS INTACT. NS INFUSING @ 75 mL/HR. OSTOMY LLQ SELF CARE. VSS/AFEBRILE. DENIES PAIN, SOB, AND N/V. CALL LIGHT IN REACH. BED IN LOWEST POSITION. WILL CONTINUE TO MONITOR UNTIL DAY SHIFT NURSE ASSUMES CARE.
[2022-05-19 04:52] LABS: BASOPHILS ABSOLUTE AUTO 0.05 K/mm3 (0.00-0.23); BASOPHILS PERCENT AUTO 1 % (0-2); EOSINOPHILS ABSOLUTE AUTO 0.28 K/mm3 (0.00-0.68); EOSINOPHILS PERCENT AUTO 3 % (0-6); Hematocrit 22.9 % (37.0-53.0); Hemoglobin 7.3 g/dL (13.5-17.5); IMMATURE GRAN ABSOLUTE AUTO 0.29 K/mm3 (0.00-0.10); IMMATURE GRAN PERCENT AUTO 3 % (0-1); LYMPHOCYTES ABSOLUTE AUTO 2.57 K/mm3 (0.84-5.20); LYMPHOCYTES PERCENT AUTO 24 % (21-46); MONOCYTES ABSOLUTE AUTO 0.89 K/mm3 (0.16-1.47); MONOCYTES PERCENT AUTO 8 % (4-13); Mean Corpuscular HGB 30.4 pg (26.0-34.0); Mean Corpuscular HGB Conc 31.9 g/dL (31.5-36.5); Mean Corpuscular Volume 95 fL (80-100); Mean Platelet Volume 10.5 fL (9.1-12.4); NEUTROPHILS ABSOLUTE AUTO 6.51 K/mm3 (1.96-9.15); NEUTROPHILS PERCENT AUTO 62 % (41-73); Platelet Count 454 K/mm3 (150-400); RDW Coefficient Variation 14.4 % (11.7-14.2); RDW Standard Deviation 50.6 fL (35.1-46.3); White Blood Cell Count 10.59 K/mm3 (4.00-11.30)
[2022-05-19 05:28] LABS: Albumin, Blood 2.1 g/dL (3.4-5.0); Albumin/Globulin Ratio 0.4 (0.8-1.8); Bilirubin, Total 0.2 mg/dL (0.1-1.0); Bun/Creatinine Ratio 29.4 (12.0-20.0); Creatinine, Blood 1.77 mg/dL (0.60-1.20); Globulin, Blood 5.2 g/dL (2.2-4.0); Potassium, Blood 5.1 mmol/L (3.5-5.5); Total Protein, Blood 7.3 g/dL (6.4-8.2)
[2022-05-19] MEDS ORDERED: MAGNESIUM OXID500 MG PO (15:04)
[2022-05-19] MEDS ORDERED: FERSU300 PO (15:04)
[2022-05-19] MEDS ORDERED: VANCOCIN HCL125 MG PO (15:05)
--- NOTE | 2022-05-19 17:22 | NUR ---
DISCHARGE PATIENT TRANSPORTED VIA WHEELCHAIR TO PRIVATE VEHICLE. DISCHARGE INSTRUCTIONS EXPLAINED TO PATIENT AND PATIENT SISTER. BOTH STATED UNDERSTANDING. PACKET SENT WITH PATIENT. BELONGINGS SENT WITH PATIENT. IV REMOVED WITHOUT DIFFICULTY. MEDICATIONS FAXED TO PREFERRED PHARMACY. [facility] TO SCHEDULE FOLLOW UP APPOINTMENT WITH PATIENT.
== END 2022-05-19 16:26 | disposition home health service (06) | DRG 371 ==
LOC: ER 17:16 → MEDS 17:17
PROVIDERS: Emergency Medicine; Family Medicine; Internal Medicine; Student in an Organized Health Care Education/Training Program; ADMIT Family Medicine
PROC: 8E0ZXY6 Isolation (ICD-10-PCS; principal; 2022-05-07)
DX: A04.72 Enterocolitis due to Clostridium difficile, not specified as recurrent (principal); U07.1 COVID-19; N17.9 Acute kidney failure, unspecified; F05 Delirium due to known physiological condition; E83.42 Hypomagnesemia; E87.5 Hyperkalemia; Z91.014 Allergy to mammalian meats; J44.9 Chronic obstructive pulmonary disease, unspecified; G62.9 Polyneuropathy, unspecified; F17.200 Nicotine dependence, unspecified, uncomplicated; Z20.822 Contact with and (suspected) exposure to COVID-19; I25.10 Atherosclerotic heart disease of native coronary artery without angina pectoris; F81.9 Developmental disorder of scholastic skills, unspecified; Z79.82 Long term (current) use of aspirin; Z79.02 Long term (current) use of antithrombotics/antiplatelets; I70.202 Unspecified atherosclerosis of native arteries of extremities, left leg; I70.302 Unspecified atherosclerosis of unspecified type of bypass graft(s) of the extremities, left leg; Z85.048 Personal history of other malignant neoplasm of rectum, rectosigmoid junction, and anus; N18.30 Chronic kidney disease, stage 3 unspecified; D63.1 Anemia in chronic kidney disease; R63.4 Abnormal weight loss; E86.0 Dehydration; I25.2 Old myocardial infarction; E03.9 Hypothyroidism, unspecified; N40.0 Benign prostatic hyperplasia without lower urinary tract symptoms; G25.81 Restless legs syndrome; I12.9 Hypertensive chronic kidney disease with stage 1 through stage 4 chronic kidney disease, or unspecified chronic kidney disease; Z93.3 Colostomy status; E78.00 Pure hypercholesterolemia, unspecified
CPT/HCPCS: 0241U; 36415; 71046; 74176; 80048; 80053; 82270; 82272; 82947; 83605; 83690; 83735; 83880; 84484; 85025; 87015; 87040; 87045; 87046; 87077; 87177; 87205; 87209; 87324; 87507; 87899; 93005; 93010; 93971; 96361; 96365; 96366; 96372; 97110; 97116; 97162; 97164; 97530; 99284-25; A9270; G0378; J1644; J3475; J7030; U0004

== ENCOUNTER → 2022-09-19 | Outpatient (CLI) | payer OTHER ==
[~2022-09-19] MED LIST changes: +ATOR40TA PO; +CLOP75 PO; +LEVE500 PO; +MAGNESIUM OXID500 MG PO; +Nicoderm Cq1 EAC1 TOP; +VANCOCIN HCL125 MG PO
[2022-09-19 18:04] LABS: Campylobacter Sp Detected (NOT DETECT); Norovirus GI/GII Detected (NOT DETECT)
[2022-09-19 18:05] LABS: Adenovirus F 40/41 Not Detected (NOT DETECT); Astrovirus Not Detected (NOT DETECT); Cryptosporidium Not Detected (NOT DETECT); Cyclospora Cayetanensis Not Detected (NOT DETECT); E. Coli O157 Not Detected (NOT DETECT); Entamoeba Histolytica Not Detected (NOT DETECT); Enteroaggregative E. coli-EAEC Not Detected (NOT DETECT); Enteropathogenic E. coli-EPEC Not Detected (NOT DETECT); Enterotoxigenic E. coli-ETEC Not Detected (NOT DETECT); Giardia Lamblia Not Detected (NOT DETECT); Plesiomonas Shigelloides Not Detected (NOT DETECT); Rotavirus A Not Detected (NOT DETECT); Salmonella Sp Not Detected (NOT DETECT); Sapovirus Not Detected (NOT DETECT); Shiga Toxin-prod E. coli-STEC Not Detected (NOT DETECT); Shigella/Enteroin E. coli-EIEC Not Detected (NOT DETECT); Vibrio Cholerae Not Detected (NOT DETECT); Vibrio Sp Not Detected (NOT DETECT); Yersinia Enterocolitica Not Detected (NOT DETECT)
== END | disposition home or self-care (01) ==
LOC: LAB SHORT 15:56 → LAB 15:56
PROVIDERS: Physician Assistant Medical
DX: R19.7 Diarrhea, unspecified (principal)
CPT/HCPCS: 87324; 87507

== ENCOUNTER 2022-09-26 08:04 | Day surgery (SDC) | payer OTHER ==
[~2022-09-26] VITALS: Ht 175.3 cm; Wt 80.4 kg
[2022-09-26 08:59] VITALS: BP 101/59
--- NOTE | 2022-09-26 10:26 | NUR ---
09/26/22 1026 Carolin Mcdaniel PROCEDURE CANCELLED BY DR TORRES DUE TO CURRENT, UNTREATED CDIFF INFECTION. DR ENCOURAGED PT AND PT'S SISTER TO FOLLOW UP WITH PCP TO BE REFFERRED TO [facility] INFECTIOUS DISEASE SPECIALIST. PT'S SISTER AND CAREGIVER VOICED UNDERSTANDING WITH THE URGENCY FOR FUTHER TREATMENT AND CARE FOR THE PT.
== END 2022-09-26 10:10 | disposition home or self-care (01) ==
LOC: ORSCSDS 08:04
DX: R19.7 Diarrhea, unspecified (principal); Z53.9 Procedure and treatment not carried out, unspecified reason
CPT/HCPCS: 82947; J2704; J7120

== ENCOUNTER → 2024-03-12 | Outpatient (CLI) | payer OTHER ==
[2024-03-12 16:28] LABS: Source, Urine Clean Catch
[2024-03-12 17:47] LABS: Appearance, Urine Hazy (Clear); Bilirubin, Urine Neg (Neg); Blood, Urine 5+ (Neg); Color, Urine Yellow (P-Yellow); Glucose Qualitative, Urine Neg (Neg); Ketones, Urine Neg (Neg); Leukocyte Esterase, Urine Neg (Neg); Nitrite, Urine Neg (Neg); Protein, Urine 3+ (Neg); Specific Gravity, Urine 1.015 (1.003-1.022); Urobilinogen, Urine NORM (Normal)
[2024-03-12 17:59] LABS: Bacteria Few /hpf; Red Blood Cells, Urine 25-50 /hpf (0-2); Squamous Epithelial Cells Not Seen /hpf (Few); Transitional Epithelial Cells Rare /hpf (0-Rare)
== END | disposition home or self-care (01) ==
LOC: LAB SHORT 16:25 → LAB 16:25
PROVIDERS: Family Medicine
DX: R31.0 Gross hematuria (principal)
CPT/HCPCS: 81001; 87086

== ENCOUNTER 2024-04-16 09:15 | Day surgery (SDC) | payer OTHER ==
[~2024-04-16] VITALS: Ht 175.3 cm; Wt 100.7 kg
[~2024-04-16 09:15] MED LIST changes: +Atropine Sulfate 0.1 MG/ML 10ML SYR ONE; +Glycopyrrolate 0.2 MG/ML 1MLVIAL ONE; +Lactated Ringer's 1,000 ML IV ONE; +Lidocaine 2% 5 ML SDV ONE; +Lidocaine HCl/Pf 1% 5 ML VIAL ONE; +Methylene Blue 1% 100 MG/10 ML VIAL ONE; +Ondansetron HCl 2 MG / ML 2ML Vial ONE; +ePHEDrine Sulfate 50 MG/ML 1ML Injection ONE
[2024-04-16] MEDS ORDERED: propofoL 50 ML IV ONE (09:33)
[2024-04-16] MEDS ORDERED: propofoL 40 ML IV ONE (10:39)
[2024-04-16] MEDS ORDERED: Prinivil10 MG (11:00)
[2024-04-16] MEDS ORDERED: PROBIOTIC1 EA14 (11:01)
[2024-04-16] MEDS ORDERED: FAMO40 (11:01)
[2024-04-16] MEDS ORDERED: Lactated Ringer's 1,000 ML IV ONE (11:30)
--- NOTE | 2024-04-16 12:06 | NUR ---
04/16/24 1206 LETHA CASTORENA COLONOSCOPY THROUGH THE STOMA
[2024-04-16] MEDS ORDERED: propofoL 20 ML IV ONE (13:25)
[2024-04-16 13:43] VITALS: BP 161/65
== END 2024-04-16 13:48 | disposition home or self-care (01) ==
LOC: ORSCSDS 09:15
PROVIDERS: Internal Medicine Gastroenterology
PROC: 0DBH8ZX Excision of Cecum, Via Natural or Artificial Opening Endoscopic, Diagnostic (ICD-10-PCS; principal; 2024-04-16 11:00)
PROC: 0DJD8ZZ Inspection of Lower Intestinal Tract, Via Natural or Artificial Opening Endoscopic (ICD-10-PCS; principal; 2024-04-16 11:00)
PROC: 0DBK8ZX Excision of Ascending Colon, Via Natural or Artificial Opening Endoscopic, Diagnostic (ICD-10-PCS; principal; 2024-04-16 11:00)
DX: R19.7 Diarrhea, unspecified (principal); D12.0 Benign neoplasm of cecum; D12.2 Benign neoplasm of ascending colon; Z85.048 Personal history of other malignant neoplasm of rectum, rectosigmoid junction, and anus; K57.30 Diverticulosis of large intestine without perforation or abscess without bleeding; Z86.0100 Personal history of colon polyps, unspecified; K62.7 Radiation proctitis; E11.22 Type 2 diabetes mellitus with diabetic chronic kidney disease; I12.9 Hypertensive chronic kidney disease with stage 1 through stage 4 chronic kidney disease, or unspecified chronic kidney disease; N18.9 Chronic kidney disease, unspecified; F03.90 Unspecified dementia, unspecified severity, without behavioral disturbance, psychotic disturbance, mood disturbance, and anxiety; N40.0 Benign prostatic hyperplasia without lower urinary tract symptoms; Z79.82 Long term (current) use of aspirin; E03.9 Hypothyroidism, unspecified; E78.5 Hyperlipidemia, unspecified; Z79.899 Other long term (current) drug therapy
CPT/HCPCS: 82947; 88305; J0461; J2003; J2405; J2704; J7120; Q9968

== ENCOUNTER → 2024-06-27 | Outpatient (CLI) | payer OTHER ==
[~2024-06-27] MED LIST changes: -Atropine Sulfate 0.1 MG/ML 10ML SYR ONE; +FAMO40; -Glycopyrrolate 0.2 MG/ML 1MLVIAL ONE; -Lactated Ringer's 1,000 ML IV ONE; -Lidocaine 2% 5 ML SDV ONE; -Lidocaine HCl/Pf 1% 5 ML VIAL ONE; -Methylene Blue 1% 100 MG/10 ML VIAL ONE; -Ondansetron HCl 2 MG / ML 2ML Vial ONE; +PROBIOTIC1 EA14; +Prinivil10 MG; -ePHEDrine Sulfate 50 MG/ML 1ML Injection ONE
[2024-06-27 19:27] LABS: Microalb/Creat Ratio UR, Rand 244.545 mg/g (0.000-30.000)
== END ==
LOC: LAB SHORT 16:19
PROVIDERS: Family Medicine
DX: I10 Essential (primary) hypertension (principal); R31.9 Hematuria, unspecified
CPT/HCPCS: 82043; 82570; 87086

== ENCOUNTER 2024-08-21 11:57 | Day surgery (SDC) | payer OTHER ==
[~2024-08-21] VITALS: Ht 175.3 cm; Wt 103.5 kg
[~2024-08-21 11:57] MED LIST changes: +Balanced Salt Epinephrine Irrigation Solution 500 mL IR SCH; +Diazepam 5 MG Tab PO PRN; +Diazepam 5 MG Tab PO SCH; +Lidocaine HCl/Pf 1% 5 ML VIAL XX SCH; +Moxifloxacin HCL 0.5 MG/0.1 ML 0.4MLSYR RIGHTEYE SCH; +NS 500 ML IV ONE; +Ondansetron 4 MG SoluTab MM PRN; +PHENYLEPHRINE\\TROPICAMIDE\\TETRACAINE OPHTHALMIC DILATING SOLN RIGHTEYE PRN; +Povidone-Iodine 450 DROP/30 ML Solution ONE; +Povidone-Iodine 450 DROP/30 ML Solution RIGHTEYE SCH; +Tetracaine HCl/Pf 0.5% Opth Soln 4 ml ONE; +Triamcinolone Inj Susp 40 MG / ML 1ML Vial INJ SCH; +Triamcinolone Inj Susp 40 MG / ML 1ML Vial ONE
[2024-08-21] MEDS ORDERED: VITAMIN D5000 UNIT PO (12:45)
[2024-08-21] MEDS ORDERED: CYMBALTA30 MG PO (12:45)
[2024-08-21] MEDS ORDERED: MONT10T PO (12:46)
[2024-08-21] MEDS ORDERED: NS 500 ML IV ONE (12:56)
--- NOTE | 2024-08-21 12:57 | NUR ---
08/21/24 1257 Iris Herrera IN AT 1243 PLESTEPHEN IN AT 1245 CALL LIGHT AT BEDSIDE. SISTER ARELY AT BEDSIDE
[2024-08-21] MEDS ORDERED: Midazolam HCl 1MG / ML 2ML Vial ONE (13:39)
[2024-08-21] MEDS ORDERED: FentaNYL Citrate 50 MCG/ML 2 ML Injection ONE (13:39)
[2024-08-21 14:19] VITALS: BP 194/65
--- NOTE | 2024-08-21 14:43 | NUR ---
08/21/24 1443 DON YI PT EMPTIED AND CHANGED COLOSTOMY BAG DURING VISIT. SISTER AND DEVAUGHN MONAE ASSISTED WITH PROCEDURE.
== END 2024-08-21 14:40 | disposition home or self-care (01) ==
LOC: ORSCSDS 11:57
PROVIDERS: Ophthalmology
PROC: 08RJ3JZ Replacement of Right Lens with Synthetic Substitute, Percutaneous Approach (ICD-10-PCS; principal; 2024-08-21 13:30)
DX: E11.36 Type 2 diabetes mellitus with diabetic cataract (principal); H25.813 Combined forms of age-related cataract, bilateral; I25.10 Atherosclerotic heart disease of native coronary artery without angina pectoris; J44.9 Chronic obstructive pulmonary disease, unspecified; E78.5 Hyperlipidemia, unspecified; I25.2 Old myocardial infarction; E03.9 Hypothyroidism, unspecified; I10 Essential (primary) hypertension; I73.9 Peripheral vascular disease, unspecified; K21.9 Gastro-esophageal reflux disease without esophagitis; R56.9 Unspecified convulsions; E66.9 Obesity, unspecified; Z68.33 Body mass index [BMI] 33.0-33.9, adult; Z79.82 Long term (current) use of aspirin; Z79.899 Other long term (current) drug therapy
CPT/HCPCS: 82947; J2250; J3010; J3301; J7040; V2632

== ENCOUNTER 2024-08-28 12:12 | Day surgery (SDC) | payer OTHER ==
[~2024-08-28] VITALS: Ht 175.3 cm; Wt 103.2 kg
[~2024-08-28 12:12] MED LIST changes: +CYMBALTA30 MG PO; -Diazepam 5 MG Tab PO PRN; -Diazepam 5 MG Tab PO SCH; +Moxifloxacin HCL 0.5 MG/0.1 ML 0.4MLSYR LEFTEYE SCH; -Moxifloxacin HCL 0.5 MG/0.1 ML 0.4MLSYR RIGHTEYE SCH; -NS 500 ML IV ONE; -Ondansetron 4 MG SoluTab MM PRN; +PHENYLEPHRINE\\TROPICAMIDE\\TETRACAINE OPHTHALMIC DILATING SOLN LEFTEYE PRN; -PHENYLEPHRINE\\TROPICAMIDE\\TETRACAINE OPHTHALMIC DILATING SOLN RIGHTEYE PRN; +Povidone-Iodine 450 DROP/30 ML Solution LEFTEYE SCH; -Povidone-Iodine 450 DROP/30 ML Solution RIGHTEYE SCH; +VITAMIN D5000 UNIT PO
[2024-08-28] MEDS ORDERED: LISI20 (13:05)
[2024-08-28] MEDS ORDERED: [UNRECOGNIZED DRUG - OTHER] PO (13:07)
[2024-08-28] MEDS ORDERED: ALBU90OI (13:18)
[2024-08-28] MEDS ORDERED: Midazolam HCl 1MG / ML 2ML Vial ONE ×2 (13:30→13:46)
[2024-08-28] MEDS ORDERED: Lactated Ringer's 1,000 ML IV ONE (13:37)
[2024-08-28 14:07] VITALS: BP 184/62
== END 2024-08-28 14:22 | disposition home or self-care (01) ==
LOC: ORSCSDS 12:12
PROVIDERS: Ophthalmology
PROC: 08RK3JZ Replacement of Left Lens with Synthetic Substitute, Percutaneous Approach (ICD-10-PCS; principal; 2024-08-28 13:30)
DX: E11.36 Type 2 diabetes mellitus with diabetic cataract (principal); H25.812 Combined forms of age-related cataract, left eye; Z96.1 Presence of intraocular lens; I10 Essential (primary) hypertension; I25.2 Old myocardial infarction; G47.33 Obstructive sleep apnea (adult) (pediatric); F32.A Depression, unspecified; K21.9 Gastro-esophageal reflux disease without esophagitis; E66.9 Obesity, unspecified; Z68.33 Body mass index [BMI] 33.0-33.9, adult; Z79.82 Long term (current) use of aspirin; Z79.899 Other long term (current) drug therapy
CPT/HCPCS: 82947; J2250; J3301; V2632

== ENCOUNTER → 2024-11-18 | Outpatient (CLI) | payer OTHER ==
[~2024-11-18] MED LIST changes: -ACET500 PO; +ALBU90OI INH; +AMOCLA875 PO; +APHEN325 M1 PO; -Balanced Salt Epinephrine Irrigation Solution 500 mL IR SCH; -FAMO40; +FAMO40 PO; +Imdur-ER60 MG PO; +LISI20 PO; -Lidocaine HCl/Pf 1% 5 ML VIAL XX SCH; -Moxifloxacin HCL 0.5 MG/0.1 ML 0.4MLSYR LEFTEYE SCH; -PHENYLEPHRINE\\TROPICAMIDE\\TETRACAINE OPHTHALMIC DILATING SOLN LEFTEYE PRN; -PROBIOTIC1 EA14; +PROBIOTIC1 EA14 PO; -Povidone-Iodine 450 DROP/30 ML Solution LEFTEYE SCH; -Povidone-Iodine 450 DROP/30 ML Solution ONE; -Tetracaine HCl/Pf 0.5% Opth Soln 4 ml ONE; -Triamcinolone Inj Susp 40 MG / ML 1ML Vial INJ SCH; -Triamcinolone Inj Susp 40 MG / ML 1ML Vial ONE; +Ventolin5 MG/1 ML INH; +[UNRECOGNIZED DRUG - OTHER] PO
[2024-11-18 15:27] LABS: BASOPHILS ABSOLUTE AUTO 0.02 K/mm3 (0.00-0.23); BASOPHILS PERCENT AUTO 0 % (0-2); EOSINOPHILS ABSOLUTE AUTO 0.16 K/mm3 (0.00-0.68); EOSINOPHILS PERCENT AUTO 2 % (0-6); Hematocrit 22.6 % (37.0-53.0); Hemoglobin 6.7 g/dL (13.5-17.5); IMMATURE GRAN ABSOLUTE AUTO 0.05 K/mm3 (0.00-0.10); IMMATURE GRAN PERCENT AUTO 1 % (0-1); LYMPHOCYTES ABSOLUTE AUTO 2.07 K/mm3 (0.84-5.20); LYMPHOCYTES PERCENT AUTO 23 % (21-46); MONOCYTES ABSOLUTE AUTO 0.49 K/mm3 (0.16-1.47); MONOCYTES PERCENT AUTO 6 % (4-13); Mean Corpuscular HGB Conc 29.6 g/dL (31.5-36.5); Mean Corpuscular Volume 101 fL (80-100); NEUTROPHILS ABSOLUTE AUTO 6.06 K/mm3 (1.96-9.15); NEUTROPHILS PERCENT AUTO 69 % (41-73); NRBC ABSOLUTE 0.02 K/mm3 (0.00-0.02); NRBC Auto 0.2 /100 WBC (0.0-0.2); Platelet Count 325 K/mm3 (150-400); RDW Coefficient Variation 15.5 % (11.7-14.2); RDW Standard Deviation 56.8 fL (35.1-46.3)
[2024-11-18 15:54] LABS: Anion Gap 6.0 mmol/L (3-11); Blood Urea Nitrogen 24.0 mg/dL (8-24); CO2, Blood 26.0 mmol/L (21-32); Calcium, Blood 8.9 mg/dL (8.5-10.1); Chloride, Blood 110.0 mmol/L (98-108); Creatinine, Blood 1.6 mg/dL (0.60-1.20); Glucose, Blood 123.0 mg/dL (70-99); Magnesium, Blood 2.1 mg/dL (1.6-2.4); Potassium, Blood 4.3 mmol/L (3.5-5.5); Sodium, Blood 138.0 mmol/L (136-145)
== END ==
LOC: LAB 13:10 → LAB SHORT 13:10
PROVIDERS: Family Medicine
DX: E83.42 Hypomagnesemia (principal); D63.8 Anemia in other chronic diseases classified elsewhere
CPT/HCPCS: 80048; 82306; 83735; 85025

== ENCOUNTER 2024-11-21 17:39 | Emergency (ER) | payer OTHER ==
[~2024-11-21] VITALS: Ht 172.7 cm; Wt 102.1 kg
[2024-11-21 17:43] VITALS: BP 134/58
[2024-11-21 18:36] LABS: BASOPHILS ABSOLUTE AUTO 0.03 K/mm3 (0.00-0.23); BASOPHILS PERCENT AUTO 0 % (0-2); EOSINOPHILS ABSOLUTE AUTO 0.19 K/mm3 (0.00-0.68); EOSINOPHILS PERCENT AUTO 3 % (0-6); Hematocrit 22.8 % (37.0-53.0); Hemoglobin 6.7 g/dL (13.5-17.5); IMMATURE GRAN ABSOLUTE AUTO 0.03 K/mm3 (0.00-0.10); IMMATURE GRAN PERCENT AUTO 0 % (0-1); LYMPHOCYTES ABSOLUTE AUTO 1.65 K/mm3 (0.84-5.20); LYMPHOCYTES PERCENT AUTO 24 % (21-46); MONOCYTES ABSOLUTE AUTO 0.58 K/mm3 (0.16-1.47); MONOCYTES PERCENT AUTO 8 % (4-13); Mean Corpuscular HGB Conc 29.4 g/dL (31.5-36.5); Mean Corpuscular Volume 104 fL (80-100); NEUTROPHILS ABSOLUTE AUTO 4.40 K/mm3 (1.96-9.15); NEUTROPHILS PERCENT AUTO 64 % (41-73); NRBC ABSOLUTE 0.00 K/mm3 (0.00-0.02); NRBC Auto 0.0 /100 WBC (0.0-0.2); Platelet Count 290 K/mm3 (150-400); RDW Coefficient Variation 15.9 % (11.7-14.2); RDW Standard Deviation 59.5 fL (35.1-46.3)
[2024-11-21 18:52] LABS: Prothrombin Time Results 11.9 Sec (9.7-11.5)
[2024-11-21 18:59] LABS: Magnesium, Blood 1.9 mg/dL (1.6-2.4)
[2024-11-21 19:00] LABS: Alanine Aminotransfer (ALT/SGP 16.0 U/L (12-78); Albumin, Blood 2.8 g/dL (3.4-5.0); Albumin/Globulin Ratio 0.6 (0.8-1.8); Anion Gap 7.0 mmol/L (3-11); Aspartate Aminotrans (AST/SGOT 13.0 U/L (12-37); Bilirubin, Total 0.4 mg/dL (0.1-1.0); Blood Urea Nitrogen 25.0 mg/dL (8-24); CO2, Blood 23.0 mmol/L (21-32); Calcium, Blood 8.5 mg/dL (8.5-10.1); Chloride, Blood 111.0 mmol/L (98-108); Creatinine, Blood 1.54 mg/dL (0.60-1.20); Globulin, Blood 5.0 g/dL (2.2-4.0); Glucose, Blood 114.0 mg/dL (70-99); Potassium, Blood 4.2 mmol/L (3.5-5.5); Sodium, Blood 137.0 mmol/L (136-145); Total Protein, Blood 7.8 g/dL (6.4-8.2)
[2024-11-21] MEDS ORDERED: NS 1,000 ML IV ONE (19:45)
[2024-11-21 21:12] LABS: Source, Urine Clean Catch
[2024-11-21 21:18] LABS: Bilirubin, Urine Neg (Neg); Color, Urine Yellow (P-Yellow); Glucose Qualitative, Urine Neg (Neg); Ketones, Urine Neg (Neg); Leukocyte Esterase, Urine 2+ (Neg); Protein, Urine 3+ (Neg); Specific Gravity, Urine 1.010 (1.003-1.022); Urobilinogen, Urine NORM (Normal)
== END 2024-11-21 22:56 | disposition home or self-care (01) ==
LOC: ER 17:39
PROVIDERS: Student in an Organized Health Care Education/Training Program
DX: D64.9 Anemia, unspecified (principal); J44.89 Other specified chronic obstructive pulmonary disease; I10 Essential (primary) hypertension; E78.00 Pure hypercholesterolemia, unspecified; F17.200 Nicotine dependence, unspecified, uncomplicated; Z79.82 Long term (current) use of aspirin; Z79.899 Other long term (current) drug therapy; Z91.030 Bee allergy status; Z88.1 Allergy status to other antibiotic agents
CPT/HCPCS: 36430; 71045; 80053; 81001; 83735; 85025; 85610; 85730; 86850; 86900; 86901; 86923; 87086; 99284-25; J7030; P9016

== ENCOUNTER → 2024-12-02 | Outpatient (CLI) | payer OTHER ==
[2024-12-02 11:31] LABS: BASOPHILS ABSOLUTE AUTO 0.02 K/mm3 (0.00-0.23); BASOPHILS PERCENT AUTO 0 % (0-2); EOSINOPHILS ABSOLUTE AUTO 0.32 K/mm3 (0.00-0.68); EOSINOPHILS PERCENT AUTO 6 % (0-6); Hematocrit 26.4 % (37.0-53.0); Hemoglobin 8.0 g/dL (13.5-17.5); IMMATURE GRAN ABSOLUTE AUTO 0.01 K/mm3 (0.00-0.10); IMMATURE GRAN PERCENT AUTO 0 % (0-1); LYMPHOCYTES ABSOLUTE AUTO 1.89 K/mm3 (0.84-5.20); LYMPHOCYTES PERCENT AUTO 35 % (21-46); MONOCYTES ABSOLUTE AUTO 0.44 K/mm3 (0.16-1.47); MONOCYTES PERCENT AUTO 8 % (4-13); Mean Corpuscular HGB Conc 30.3 g/dL (31.5-36.5); Mean Corpuscular Volume 101 fL (80-100); NEUTROPHILS ABSOLUTE AUTO 2.78 K/mm3 (1.96-9.15); NEUTROPHILS PERCENT AUTO 51 % (41-73); NRBC ABSOLUTE 0.00 K/mm3 (0.00-0.02); NRBC Auto 0.0 /100 WBC (0.0-0.2); Platelet Count 251 K/mm3 (150-400); RDW Coefficient Variation 15.9 % (11.7-14.2); RDW Standard Deviation 58.6 fL (35.1-46.3)
[2024-12-02 12:10] LABS: Anion Gap 7.0 mmol/L (3-11); Blood Urea Nitrogen 32.0 mg/dL (8-24); CO2, Blood 25.0 mmol/L (21-32); Calcium, Blood 8.8 mg/dL (8.5-10.1); Chloride, Blood 110.0 mmol/L (98-108); Creatinine, Blood 1.38 mg/dL (0.60-1.20); Glucose, Blood 135.0 mg/dL (70-99); Potassium, Blood 3.9 mmol/L (3.5-5.5); Sodium, Blood 138.0 mmol/L (136-145)
[2024-12-03 20:36] LABS: KEPPRA (LEVETIRACETAM) 40.4 ug/mL (10.0-40.0)
== END ==
LOC: LAB SHORT 10:40 → LAB 10:40
PROVIDERS: Psychiatry & Neurology Neurology
DX: D50.0 Iron deficiency anemia secondary to blood loss (chronic) (principal); R79.89 Other specified abnormal findings of blood chemistry
CPT/HCPCS: 80048; 80177; 85025

== ENCOUNTER → 2024-12-04 | Outpatient (CLI) | payer OTHER ==
[2024-12-04 11:07] LABS: Bilirubin, Urine Neg (Neg); Color, Urine Yellow (P-Yellow); Glucose Qualitative, Urine Neg (Neg); Ketones, Urine Neg (Neg); Leukocyte Esterase, Urine 1+ (Neg); Protein, Urine 2+ (Neg); Specific Gravity, Urine 1.010 (1.003-1.022); Urobilinogen, Urine NORM (Normal)
== END ==
LOC: LAB SHORT 09:30 → LAB 09:30
PROVIDERS: Family Medicine
DX: N39.0 Urinary tract infection, site not specified (principal)
CPT/HCPCS: 81001; 87086

== ENCOUNTER → 2025-02-02 | Outpatient (CLI) | payer OTHER | END | disposition home or self-care (01) | LOC: LAB 14:03 → LAB SHORT 14:03 | DX: R35.0 Frequency of micturition (principal) | CPT/HCPCS: 87077; 87086 ==

== ENCOUNTER 2025-02-10 11:15 | Inpatient (IN) | payer OTHER ==
[~2025-02-10] VITALS: Ht 175.3 cm; Wt 99.0 kg
[2025-02-10 12:24] LABS: BASOPHILS ABSOLUTE AUTO 0.04 K/mm3 (0.00-0.23); BASOPHILS PERCENT AUTO 0 % (0-2); EOSINOPHILS ABSOLUTE AUTO 0.03 K/mm3 (0.00-0.68); EOSINOPHILS PERCENT AUTO 0 % (0-6); Hematocrit 26.0 % (37.0-53.0); Hemoglobin 8.2 g/dL (13.5-17.5); IMMATURE GRAN ABSOLUTE AUTO 0.26 K/mm3 (0.00-0.10); IMMATURE GRAN PERCENT AUTO 1 % (0-1); LYMPHOCYTES ABSOLUTE AUTO 1.69 K/mm3 (0.84-5.20); LYMPHOCYTES PERCENT AUTO 9 % (21-46); MONOCYTES ABSOLUTE AUTO 1.16 K/mm3 (0.16-1.47); MONOCYTES PERCENT AUTO 6 % (4-13); Mean Corpuscular HGB Conc 31.5 g/dL (31.5-36.5); Mean Corpuscular Volume 99 fL (80-100); NEUTROPHILS ABSOLUTE AUTO 15.40 K/mm3 (1.96-9.15); NEUTROPHILS PERCENT AUTO 83 % (41-73); NRBC ABSOLUTE 0.00 K/mm3 (0.00-0.02); NRBC Auto 0.0 /100 WBC (0.0-0.2); Platelet Count 243 K/mm3 (150-400); RDW Coefficient Variation 15.4 % (11.7-14.2); RDW Standard Deviation 55.1 fL (35.1-46.3)
[2025-02-10 14:04] LABS: Alanine Aminotransfer (ALT/SGP 14.0 U/L (12-78); Albumin, Blood 2.8 g/dL (3.4-5.0); Albumin/Globulin Ratio 0.5 (0.8-1.8); Anion Gap 12.0 mmol/L (3-11); Aspartate Aminotrans (AST/SGOT 22.0 U/L (12-37); Bilirubin, Total 0.3 mg/dL (0.1-1.0); Blood Urea Nitrogen 75.0 mg/dL (8-24); CO2, Blood 16.0 mmol/L (21-32); Calcium, Blood 9.5 mg/dL (8.5-10.1); Chloride, Blood 113.0 mmol/L (98-108); Creatinine, Blood 3.22 mg/dL (0.60-1.20); Globulin, Blood 6.0 g/dL (2.2-4.0); Glucose, Blood 134.0 mg/dL (70-99); Magnesium, Blood 2.3 mg/dL (1.6-2.4); Phosphorus, Blood 4.5 mg/dL (2.5-4.9); Potassium, Blood 5.5 mmol/L (3.5-5.5); Sodium, Blood 135.0 mmol/L (136-145); Total Protein, Blood 8.8 g/dL (6.4-8.2)
[2025-02-10] MEDS ORDERED: NS 1,000 ML IV SCH ×2 (14:15→15:25)
[2025-02-10] MEDS ORDERED: NS IV ONE (14:30)
[2025-02-10] MEDS ORDERED: AMPICILLIN SOD IV ONE (14:30)
[2025-02-10] MEDS ORDERED: FLU VACC TS2025(65UP)/MF59C/PF 45 MCG/0.5 ML SYRINGE IM SCH (15:25)
[2025-02-10] MEDS ORDERED: Insulin Regular 100 UNIT/ML 10ML Vial SC SCH (16:30)
[2025-02-10 16:54] LABS: pH Blood Venous 7.16 (7.34-7.37)
[2025-02-10] MEDS ORDERED: Sodium Bicarb 8.4% Inj 75 MEQ in Sodium Chloride 0.45% 1,000 ML IV SCH (17:15)
[2025-02-10 18:07] LABS: Source, Urine Clean Catch
[2025-02-10 18:12] LABS: Bilirubin, Urine Neg (Neg); Color, Urine Brown (P-Yellow); Glucose Qualitative, Urine Neg (Neg); Ketones, Urine 1+ (Neg); Leukocyte Esterase, Urine 3+ (Neg); Protein, Urine 4+ (Neg); Specific Gravity, Urine 1.015 (1.003-1.022); Urobilinogen, Urine NORM (Normal)
[2025-02-10 18:25] LABS: U Amphetamine Screen Not Detected; U Barbituate Screen Not Detected; U Benzodiazapine Screen Not Detected; U Buprenorphine Screen Not Detected; U Cannabinoids Screen Not Detected; U Cocaine Screen Not Detected; U Methadone Screen Not Detected; U Methamphetamine Screen Not Detected; U Opiates Screen Not Detected; U Oxycodone Screen Not Detected; U Phencyclidine Screen Not Detected
[2025-02-10 18:33] VITALS: BP 153/61
[2025-02-10 18:39] LABS: Red Blood Cells, Urine TNTC /hpf (0-2); White Blood Cells, Urine TNTC /hpf (0-5)
--- NOTE | 2025-02-10 19:01 | NUR ---
PT ARRIVED IN THE ROOM REPORT RECEIVED FROM JAVY CANTOR. PT SOMNOLENT UPON ARRIVAL PT REPORTS LETHARGY WELL. PT ABLE TO RESPOND TO QUESTIONS A&OX3, SOMEWHAT CONFUSED WAS LOOKING AT THE WALKER AND POINTING AT STUFFS. VITALS HRR SR 70'S, SBP 150'S, SATS ABOVE 95% ON RA, AFEBRILE. PT HAS COLOSTOMY CHANGED UPON ARRIVAL. MALE PUREWICK IN PLACE. PT STILL HAS HEMATURIA. US SAMPLE SENT TO LAB PER ER NURSE. NAHCO3 GTT AT 100MLS/HR. DR RICHARDS WAS IN THE UNIT ROUNDING ON PATIENTS NOTIFIED OF CONSULT FOR THIS PT. SISTER JOANNE AT THE BEDSIDE. LEG ULTRASOUND BEING DONE AT THE MOMENT. WILL REPORT TO ONCOMING SHIFT
[2025-02-10 20:23] VITALS: BP 159/60
[2025-02-10] MEDS ORDERED: Lactobacil 2-S.Thermo-Bifido 1 1 Cap PO SCH (21:00)
[2025-02-10] MEDS ORDERED: Ampicillin Sod/Sulbactam Sod 3 GM in NS 100 ML IV SCH (21:00)
[2025-02-10] MEDS ORDERED: Heparin Sodium,Porcine 5,000 UNIT/0.5 ML SDV SC SCH (21:00)
[2025-02-10 21:36] LABS: pH Blood Venous 7.17 (7.34-7.37)
[2025-02-10] MEDS ORDERED: ALBU2.5V5 INH (23:00)
[2025-02-10] MEDS ORDERED: FERROUS SULFAT325 M3 PO (23:11)
[2025-02-11] VITALS (7 sets, daily range): BP systolic 143–178; BP diastolic 61–76
--- NOTE | 2025-02-11 04:23 | NUR ---
SHIFT SUMMARY: PATIENT HAS RESPONDED TO QUESTIONS APPROPRIATELY WHEN WOKEN UP FROM SLEEPING VIA VERBAL STIMULI, THOUGH HAS BEEN IRRITATED WHEN WOKEN UP. TELE SHOWS SINUS RHYTHM @ 70'S BPM. PATIENT HAS BEEN ON ROOM AIR WITH >90% SPO2, AND HAS BEEN AFEBRILE. PATIENTS ABD HAS A COLOSTOMY ON LLQ WITH SCANT AMOUNT OF LOOSE BROWN STOOL OUTPUT NOTED. MALE PUREWICK IN PLACE ON LOW CONTINUOUS SUCTION WITH HEMATURIA OUTPUT. SODIUM BICARB GTT RUNNING AT 100ML/HR - FINISHING THE 1ST BAG OUT OF 2 OF SODIUM BICARB. PATIENT LAYING IN BED WITH CALL LIGHT IN REACH. BED ALARM ON A PRECAUTION.
[2025-02-11 05:05] LABS: pH Blood Venous 7.33 (7.34-7.37)
[2025-02-11 05:17] LABS: BASOPHILS ABSOLUTE AUTO 0.03 K/mm3 (0.00-0.23); BASOPHILS PERCENT AUTO 0 % (0-2); EOSINOPHILS ABSOLUTE AUTO 0.15 K/mm3 (0.00-0.68); EOSINOPHILS PERCENT AUTO 1 % (0-6); Hematocrit 26.8 % (37.0-53.0); Hemoglobin 8.3 g/dL (13.5-17.5); IMMATURE GRAN ABSOLUTE AUTO 0.19 K/mm3 (0.00-0.10); IMMATURE GRAN PERCENT AUTO 1 % (0-1); LYMPHOCYTES ABSOLUTE AUTO 1.26 K/mm3 (0.84-5.20); LYMPHOCYTES PERCENT AUTO 7 % (21-46); MONOCYTES ABSOLUTE AUTO 1.10 K/mm3 (0.16-1.47); MONOCYTES PERCENT AUTO 6 % (4-13); Mean Corpuscular HGB Conc 31.0 g/dL (31.5-36.5); Mean Corpuscular Volume 99 fL (80-100); NEUTROPHILS ABSOLUTE AUTO 14.71 K/mm3 (1.96-9.15); NEUTROPHILS PERCENT AUTO 84 % (41-73); NRBC ABSOLUTE 0.00 K/mm3 (0.00-0.02); NRBC Auto 0.0 /100 WBC (0.0-0.2); Platelet Count 252 K/mm3 (150-400); RDW Coefficient Variation 15.2 % (11.7-14.2); RDW Standard Deviation 54.8 fL (35.1-46.3)
[2025-02-11 05:44] LABS: Anion Gap 11.0 mmol/L (3-11); Blood Urea Nitrogen 67.0 mg/dL (8-24); CO2, Blood 17.0 mmol/L (21-32); Calcium, Blood 9.1 mg/dL (8.5-10.1); Chloride, Blood 115.0 mmol/L (98-108); Creatinine, Blood 2.54 mg/dL (0.60-1.20); Glucose, Blood 108.0 mg/dL (70-99); Potassium, Blood 4.5 mmol/L (3.5-5.5); Sodium, Blood 138.0 mmol/L (136-145)
[2025-02-11] MEDS ORDERED: Ampicillin Sod/Sulbactam Sod 3 GM in NS 100 ML IV SCH (12:00)
[2025-02-11] MEDS ORDERED: Lidocaine 2% Jelly Uro-Jet UR ONE (12:40)
[2025-02-11] MEDS ORDERED: HydrALAZINE HCl 20 MG / ML 1ML Vial IV PRN (15:55)
[2025-02-11] MEDS ORDERED: Tiotropium Bromide 2.5 MCG/ACT MIST INHAL (10 ACT/4 GM) INH SCH (16:00)
[2025-02-11] MEDS ORDERED: HYDROmorphone HCl/Pf 1MG SYR IV ONE (17:05)
[2025-02-11 17:59] LABS: BASOPHILS ABSOLUTE AUTO 0.05 K/mm3 (0.00-0.23); BASOPHILS PERCENT AUTO 0 % (0-2); EOSINOPHILS ABSOLUTE AUTO 0.13 K/mm3 (0.00-0.68); EOSINOPHILS PERCENT AUTO 1 % (0-6); Hematocrit 26.7 % (37.0-53.0); Hemoglobin 8.3 g/dL (13.5-17.5); IMMATURE GRAN ABSOLUTE AUTO 0.31 K/mm3 (0.00-0.10); IMMATURE GRAN PERCENT AUTO 2 % (0-1); LYMPHOCYTES ABSOLUTE AUTO 1.47 K/mm3 (0.84-5.20); LYMPHOCYTES PERCENT AUTO 8 % (21-46); MONOCYTES ABSOLUTE AUTO 1.04 K/mm3 (0.16-1.47); MONOCYTES PERCENT AUTO 5 % (4-13); Mean Corpuscular HGB Conc 31.1 g/dL (31.5-36.5); Mean Corpuscular Volume 100 fL (80-100); NEUTROPHILS ABSOLUTE AUTO 16.17 K/mm3 (1.96-9.15); NEUTROPHILS PERCENT AUTO 84 % (41-73); NRBC ABSOLUTE 0.00 K/mm3 (0.00-0.02); NRBC Auto 0.0 /100 WBC (0.0-0.2); Platelet Count 265 K/mm3 (150-400); RDW Coefficient Variation 15.1 % (11.7-14.2); RDW Standard Deviation 55.2 fL (35.1-46.3)
--- NOTE | 2025-02-11 18:03 | NUR ---
SHIFT SUMMARY PT A/OX3-4, COOPERATIVE OF CARE. PT ABLE TO EXPRESS NEEDS TO STAFF IF STAFF IS IN THE ROOM. PT BP'S ELEVATED BUT STABLE. OTHER VSS THROUGHOUT SHIFT WITH O2 SATS IN THE 90'S ON RA. NO RPEORT OF CHEST PAIN/PRESSURE THROUGHOUT SHIFT. PT WORKED WITH PT/OT, SEE THERAPIST'S NOTES. PT CONTINUED TO HAVE HEMATURIA WITH SMALL AMOUNTS OF OUTPUT VIA PUREWICK. PT BLADDER SCANNED AND HAD BEEN RETAINING URINE. UROLOGIST CONSULTED AND [address] WAY HUTCHINSON ATTEMPTED TWICE WITH NO SUCCESS. URLOGIST NOTIFIED, UROLOGIST TO BEDSIDE TO PLACE 16 FR COUDE. 500 ML URINE INSTANTLY DRAINED, TURN TO BLOOD CLOTS AND YADI BLOOD. UROLOGIST MANUALLY IRRIGATED HUTCHINSON AFTER PLACEMENT OF HUTCHINSON. PT SISTER UPDATED BY UROLOGIST. HUTCHINSON REMAINS IN PLACE WITH PRN MANUAL IRRIGATIONS ORDERS IN PLACE.
--- NOTE | 2025-02-11 20:00 | NUR ---
ASSUMPTION OF CARE ASSUMED CARE OF PT AT APPROXIMATELY 1900. PT RESTING COMFORTABLY IN BED WITH CALL LIGHT WITHIN REACH. VSS. HUTCHINSON IN PLACE DRAINING BLOODY RED URINE WITH CLOTS. HUTCHINSON MANUALLY IRRIGATED. PT TOLERATED WELL. NO C/O SPASM OR PAIN WITH IRRIGATION. NO HALLUCINATIONS VERBALIZED AT THIS TIME.
[2025-02-11] MEDS ORDERED: Montelukast Sodium 5 MG Chew PO SCH (21:00)
[2025-02-12] VITALS (8 sets, daily range): BP systolic 110–163; BP diastolic 54–87
[2025-02-12 05:06] LABS: BASOPHILS ABSOLUTE AUTO 0.04 K/mm3 (0.00-0.23); BASOPHILS PERCENT AUTO 0 % (0-2); EOSINOPHILS ABSOLUTE AUTO 0.14 K/mm3 (0.00-0.68); EOSINOPHILS PERCENT AUTO 1 % (0-6); Hematocrit 25.7 % (37.0-53.0); Hemoglobin 7.9 g/dL (13.5-17.5); IMMATURE GRAN ABSOLUTE AUTO 0.23 K/mm3 (0.00-0.10); IMMATURE GRAN PERCENT AUTO 1 % (0-1); LYMPHOCYTES ABSOLUTE AUTO 1.82 K/mm3 (0.84-5.20); LYMPHOCYTES PERCENT AUTO 11 % (21-46); MONOCYTES ABSOLUTE AUTO 0.89 K/mm3 (0.16-1.47); MONOCYTES PERCENT AUTO 5 % (4-13); Mean Corpuscular HGB Conc 30.7 g/dL (31.5-36.5); Mean Corpuscular Volume 99 fL (80-100); NEUTROPHILS ABSOLUTE AUTO 13.66 K/mm3 (1.96-9.15); NEUTROPHILS PERCENT AUTO 82 % (41-73); NRBC ABSOLUTE 0.00 K/mm3 (0.00-0.02); NRBC Auto 0.0 /100 WBC (0.0-0.2); Platelet Count 248 K/mm3 (150-400); RDW Coefficient Variation 15.3 % (11.7-14.2); RDW Standard Deviation 55.4 fL (35.1-46.3)
--- NOTE | 2025-02-12 05:15 | NUR ---
SHIFT SUMMARY VSS. No C/O chest pain/pressure this shift. No C/O SOB. No C/O pain. Andrade in place draining red bloody urine with clots. Manual irrigation done Q4H. Colostomy to LL abdomen in place and functioning appropriately. Pt AOx3-4 this shift. O2 99% on RA. SR on tele. AC/HS CBG. VSS. Pt resting comfortably in bed with call light within reach.
[2025-02-12 06:15] LABS: Albumin, Blood 2.1 g/dL (3.4-5.0); Anion Gap 10 mmol/L (3-11); Blood Urea Nitrogen 51 mg/dL (8-24); CO2, Blood 20 mmol/L (21-32); Calcium, Blood 9.1 mg/dL (8.5-10.1); Chloride, Blood 114 mmol/L (98-108); Creatinine, Blood 1.82 mg/dL (0.60-1.20); Glucose, Blood 109 mg/dL (70-99); Phosphorus, Blood 3.7 mg/dL (2.5-4.9); Potassium, Blood 4.2 mmol/L (3.5-5.5); Sodium, Blood 140 mmol/L (136-145); Total Iron Binding Capacity 104 ug/dL (250-450)
[2025-02-12] MEDS ORDERED: DULoxetine HCL 30 MG Cap DR PO SCH (09:00)
[2025-02-12] MEDS ORDERED: Isosorbide Mononitrate 60 MG TABCR PO SCH (09:00)
--- NOTE | 2025-02-12 13:18 | NUR ---
PT SISTER PRESENT AND UPDATED ON PT PLAN OF CARE. PT UPDATED ON LAB VALUES PER PT SISTER REQUEST.
--- NOTE | 2025-02-12 18:43 | NUR ---
SHIFT SUMMARY PT A/OX3-4 AND COOPERATIVE OF CRE. PT ABLE TO EXPRESS NEEDS TO STAFF WHEN STAFF IS PRESENT. PT VSS THROUGHOUT SHIFT. NO REPORT OF CHEST PAIN/PRESSURE. NO REPORT OF SOB/DYSPNEA. PT RPEORTED ABD CRAMPS THAT GRADUALLY INCREASED DURING SHIFT. PT BLADDER SCANNED AND SHOWED 80ML. PT HUTCHINSON WAS FLOWING GOOD THIS MORING, SLOWED DOWN TOWARDS END OF SHIFT. HUTCHINSON IRRIGATED AT END OF SHIFT, SMALL CLOTS NOTED. PT DAUGHTER AT BEDSIDE AND UPDATED ON LAB VALUES AND PLAN OF CARE.
--- NOTE | 2025-02-12 21:30 | NUR ---
ASSUMPTION OF CARE ASSUMED CARE OF PT AT APPROXIMATELY 1900. PT RESTING COMFORTABLY IN BED WITH EYES CLOSED. PT ON ENTERIC PRECAUTIONS AT THIS TIME PENDING STOOL SAMPLE COLLECTION TO R/O C-DIFF. PT COOPERATIVE WITH CARES. VSS. SR ON TELE. PT ABLE TO MAKE NEEDS KNOWN. CALL LIGHT WITHIN REACH AND PT CALLS APPROPRIATELY FOR ASSISTANCE. PT VERBALIZED SEEING SPIDER WEBS ON THE CEILING THOUGH NO SPIDER WEBS ARE PRESENT.
[2025-02-13] VITALS (11 sets, daily range): BP systolic 154–182; BP diastolic 63–104
[2025-02-13 02:03] LABS: Campylobacter Sp Not Detected (NOT DETECT); E. Coli O157 Not Detected (NOT DETECT); Enteroaggregative E. coli-EAEC Not Detected (NOT DETECT); Enteropathogenic E. coli-EPEC Not Detected (NOT DETECT); Enterotoxigenic E. coli-ETEC Not Detected (NOT DETECT); Salmonella Sp Not Detected (NOT DETECT); Shiga Toxin-prod E. coli-STEC Not Detected (NOT DETECT); Shigella/Enteroin E. coli-EIEC Not Detected (NOT DETECT); Vibrio Sp Not Detected (NOT DETECT)
[2025-02-13 03:49] LABS: BASOPHILS ABSOLUTE AUTO 0.02 K/mm3 (0.00-0.23); BASOPHILS PERCENT AUTO 0 % (0-2); EOSINOPHILS ABSOLUTE AUTO 0.21 K/mm3 (0.00-0.68); EOSINOPHILS PERCENT AUTO 2 % (0-6); Hematocrit 22.2 % (37.0-53.0); Hemoglobin 6.9 g/dL (13.5-17.5); IMMATURE GRAN ABSOLUTE AUTO 0.24 K/mm3 (0.00-0.10); IMMATURE GRAN PERCENT AUTO 2 % (0-1); LYMPHOCYTES ABSOLUTE AUTO 1.77 K/mm3 (0.84-5.20); LYMPHOCYTES PERCENT AUTO 14 % (21-46); MONOCYTES ABSOLUTE AUTO 0.68 K/mm3 (0.16-1.47); MONOCYTES PERCENT AUTO 6 % (4-13); Mean Corpuscular HGB Conc 31.1 g/dL (31.5-36.5); Mean Corpuscular Volume 98 fL (80-100); NEUTROPHILS ABSOLUTE AUTO 9.46 K/mm3 (1.96-9.15); NEUTROPHILS PERCENT AUTO 76 % (41-73); NRBC ABSOLUTE 0.00 K/mm3 (0.00-0.02); NRBC Auto 0.0 /100 WBC (0.0-0.2); Platelet Count 232 K/mm3 (150-400); RDW Coefficient Variation 15.0 % (11.7-14.2); RDW Standard Deviation 54.1 fL (35.1-46.3)
[2025-02-13 04:02] LABS: Prothrombin Time Results 12.2 Sec (9.7-11.5)
[2025-02-13 04:12] LABS: Albumin, Blood 2.0 g/dL (3.4-5.0); Anion Gap 7 mmol/L (3-11); Blood Urea Nitrogen 38 mg/dL (8-24); CO2, Blood 22 mmol/L (21-32); Calcium, Blood 8.8 mg/dL (8.5-10.1); Chloride, Blood 114 mmol/L (98-108); Creatinine, Blood 1.42 mg/dL (0.60-1.20); Glucose, Blood 119 mg/dL (70-99); Phosphorus, Blood 3.6 mg/dL (2.5-4.9); Potassium, Blood 3.9 mmol/L (3.5-5.5); Sodium, Blood 139 mmol/L (136-145)
--- NOTE | 2025-02-13 05:50 | NUR ---
SHIFT SUMMARY HGB OF 6.9. MD GRANDA NOTIFIED. TYPE AND CROSS ORDERED. VSS. NO C/O CHEST PAIN/PRESSURE THIS SHIFT. NO C/O SOB. No C/O PAIN. COUDE IN PLACE DRAINING BLOODY URINE WITH CLOTS. DECREASED FLOW OBSERVED. MANUAL IRRIGATION DONE. SIGNIFICANT CLOTTING NOTED, DRAINAGE BAG CHANGED D/T INABILITY TO EMPTY AND ACCURATELY MEASURE OUTPUT. C-DIFF POSITIVE. COLOSTOMY TO LL ABDOMEN IN PLACE AND DRAINING LIQUID STOOL. PT AOX4. MINIMAL HALLUCINATIONS PRESENT THIS SHIFT. O2 99% ON RA. SR ON TELE. AC/HS CBG. VSS. PT RESTING COMFORTABLY IN BED WITH EYES CLOSED. ABLE TO MAKE ALL NEEDS KNOWN. CALL LIGHT WITHIN REACH AND PT CALLS APPROPRIATELY FOR ASSISTANCE.
[2025-02-13] MEDS ORDERED: NS 500 ML IV SCH (06:15)
--- NOTE | 2025-02-13 09:31 | NUR ---
CARE ASSUMPTION PT A&OX4, ABLE TO MAKE NEEDS KNOWN. SP02>90% ON RA. TELEMETRY SHOWS NSR, HR 70'S-80'S. HTN NOTED. C/O OF 'CRAMPING' PAIN IN ABD. HELPS TO RECLINE BED TO 35 DEGREES. HUTCHINSON CATHETER WITH RED URINE INITALLY AT START OF SHIFT, NOW BURGUNDY, CLOTS NOTED. OSTOMY W/ LIQUID BROWN OUTPUT. Q2H REPOSITONING. HBG LOW, 1 UNIT PRBC CURRENTLY INFUSING PER ORDERS. LR INFUSING PER EMAR. MD BERRY IN ROOM TO ASSESS CATHETER. MD BERRY SPOKE WITH PT ABOUT NPO AT MIDNIGHT FOR PROCEDURE IN AM TO STOP THE BLEEDING IN BLADDER. TO NOTIFY SISTER, JOANNE. CALL LIGHT IN REACH.
[2025-02-13 14:46] LABS: Hematocrit 25.7 % (37.0-53.0); Hemoglobin 8.0 g/dL (13.5-17.5)
--- NOTE | 2025-02-13 17:05 | NUR ---
SHIFT SUMMARY NO ACUTE CHANGES SINCE CARE ASSUMPTION. HTN NOTED, HYDRALAZINE GIVEN PER EMAR X1. HUTCHINSON CATHETER STEADY FLOW, NO IRRIGATION THIS SHIFT. OSTOMY WITH FREQUENT LOOSE BM. ORAL VANCO STARTED. MD SERRANO IN ROOM TO ASSESS. TO PUT IN ORDERS FOR ANOTHER PRN FOR HTN. PT SITTING UP IN BED WATCHING TV. REPOSITIONED Q2H. SISTER IN ROOM BRIEFLY THIS AFTERNOON. FLUIDS DC'D. CALL LIGHT IN REACH.
[2025-02-14] VITALS (16 sets, daily range): BP systolic 116–178; BP diastolic 53–75
[2025-02-14] MEDS ORDERED: Ondansetron HCl 2 MG / ML 2ML Vial IV PRN ×2 (02:35→08:40)
[2025-02-14 04:43] LABS: BASOPHILS ABSOLUTE AUTO 0.03 K/mm3 (0.00-0.23); BASOPHILS PERCENT AUTO 0 % (0-2); EOSINOPHILS ABSOLUTE AUTO 0.28 K/mm3 (0.00-0.68); EOSINOPHILS PERCENT AUTO 2 % (0-6); Hematocrit 26.1 % (37.0-53.0); Hemoglobin 8.2 g/dL (13.5-17.5); IMMATURE GRAN ABSOLUTE AUTO 0.28 K/mm3 (0.00-0.10); IMMATURE GRAN PERCENT AUTO 2 % (0-1); LYMPHOCYTES ABSOLUTE AUTO 1.58 K/mm3 (0.84-5.20); LYMPHOCYTES PERCENT AUTO 12 % (21-46); MONOCYTES ABSOLUTE AUTO 0.75 K/mm3 (0.16-1.47); MONOCYTES PERCENT AUTO 6 % (4-13); Mean Corpuscular HGB Conc 31.4 g/dL (31.5-36.5); Mean Corpuscular Volume 96 fL (80-100); NEUTROPHILS ABSOLUTE AUTO 9.79 K/mm3 (1.96-9.15); NEUTROPHILS PERCENT AUTO 77 % (41-73); NRBC ABSOLUTE 0.02 K/mm3 (0.00-0.02); NRBC Auto 0.2 /100 WBC (0.0-0.2); Platelet Count 250 K/mm3 (150-400); RDW Coefficient Variation 16.8 % (11.7-14.2); RDW Standard Deviation 59.6 fL (35.1-46.3)
--- NOTE | 2025-02-14 04:58 | NUR ---
SHIFT SUMMARY C-DIFF POSITIVE. COLOSTOMY TO LL ABDOMEN IN PLACE AND DRAINING LIQUID STOOL. PT BECAME NAUSEATED AND DRY HEAVING. MD AZEVEDO NOTIFIED. MEDICATION GIVEN PER EMAR. PT REQUESTED PAIN MEDICATION. EDUCATED PT THAT ORAL MEDICATION WOULD LIKELY EXACERBATE HIS NAUSEA AND COULD RESULT IN VOMITING. PT BECAME AGITATED AND AGAIN STATED HE WANTED PAIN MEDICATION. MEDS GIVEN PER EMAR. PT HAD EPISODE OF VOMITING SHORTLY AFTER. NPO AT MIDNIGHT FOR CYSTOSCOPY IN THE AM. PT AOX4, IRRITABLE. MINIMAL HALLUCINATIONS PRESENT THIS SHIFT. O2 99% ON RA. SR ON TELE. AC/HS CBG. VSS. PT RESTING COMFORTABLY IN BED WITH EYES CLOSED. ABLE TO MAKE ALL NEEDS KNOWN. CALL LIGHT WITHIN REACH AND PT CALLS APPROPRIATELY FOR ASSISTANCE.
[2025-02-14 05:08] LABS: Albumin, Blood 2.2 g/dL (3.4-5.0); Anion Gap 9 mmol/L (3-11); Blood Urea Nitrogen 28 mg/dL (8-24); CO2, Blood 23 mmol/L (21-32); Calcium, Blood 8.7 mg/dL (8.5-10.1); Chloride, Blood 112 mmol/L (98-108); Creatinine, Blood 1.42 mg/dL (0.60-1.20); Glucose, Blood 112 mg/dL (70-99); Phosphorus, Blood 3.2 mg/dL (2.5-4.9); Potassium, Blood 4.0 mmol/L (3.5-5.5); Sodium, Blood 140 mmol/L (136-145)
[2025-02-14] MEDS ORDERED: Rocuronium Bromide 10 MG/ML 5ML Injection IV ONE (07:43)
[2025-02-14] MEDS ORDERED: FentaNYL Citrate 50 MCG/ML 2 ML Injection ONE (07:44)
--- NOTE | 2025-02-14 07:57 | NUR ---
CARE ASSUMPTION/GONE FOR PROCEDURE: A/O X3, VSS, SISTER JOANNE AT BEDSIDE, PT LEFT AT 0750 ON STRETCHER FOR CYTOSCOPY.
[2025-02-14] MEDS ORDERED: Metoclopramide HCl 5MG / ML 2ML Vial ONE (08:32)
[2025-02-14] MEDS ORDERED: Ondansetron HCl 2 MG / ML 2ML Vial ONE (08:32)
[2025-02-14] MEDS ORDERED: Dexamethasone Sod Phos 10 MG/ML 1ML VIAL ONE (08:32)
[2025-02-14] MEDS ORDERED: Labetalol HCL 5 MG/ML 4ML Injection (Single Dose) ONE (08:35)
[2025-02-14] MEDS ORDERED: FentaNYL Citrate 50 MCG/ML 2 ML Injection IV PRN ×2 (08:45)
[2025-02-14] MEDS ORDERED: HYDROmorphone HCl/Pf 1MG SYR IV PRN ×2 (08:45)
[2025-02-14] MEDS ORDERED: Sugammadex Sodium 200 MG/2ML SDV (100 MG/ML) ONE (09:03)
[2025-02-14] MEDS ORDERED: HYDROmorphone HCl/Pf 1MG SYR ONE (09:21)
--- NOTE | 2025-02-14 18:44 | NUR ---
SHIFT SUMMARY: A/O X4, ABLE TO COMMUNICATE NEEDS, USES CALL LIGHT APPROPRIATELY, SISTER JOANNE AT BEDSIDE MOST OF THE DAY, HE DEFLECTS ALL QUESTIONS AND COMMENTS TO HER, SHE STATES THAT HE NEEDS VERY BASIC LANGUAGE AND EXPLINATIONS, HE IS COGNITIVELY IMPAIRED. JOANNE REPORTED A CHRONIC ISSUE FROM A STENT THAT IS OCCLUDED IN THE LEFT GROIN AND CAUSES EDEMA IN LEFT LEG AND FAINT PEDAL PULSE. SPO2 >92% ON RA, SNORES. WENT FOR CYSTOSCOPY PROCEDURE, HUTCHINSON WAS REPLACED WITH A 20F, 3 LUMEN, CBI, PATENT AND DRAINING TO GRAVITY WITH PINK OUTPUT. C-DIFF POSITIVE, LOW COLOSTOMY OUTPUT THIS SHIFT, NPO IN MORNING FOR PROCEDURE, GOOD APPETITE FOR LUNCH AND DINNER.
[2025-02-15] VITALS (8 sets, daily range): BP systolic 124–158; BP diastolic 50–67
[2025-02-15 04:19] LABS: BASOPHILS ABSOLUTE AUTO 0.03 K/mm3 (0.00-0.23); BASOPHILS PERCENT AUTO 0 % (0-2); EOSINOPHILS ABSOLUTE AUTO 0.08 K/mm3 (0.00-0.68); EOSINOPHILS PERCENT AUTO 1 % (0-6); Hematocrit 23.5 % (37.0-53.0); Hemoglobin 7.4 g/dL (13.5-17.5); IMMATURE GRAN ABSOLUTE AUTO 0.19 K/mm3 (0.00-0.10); IMMATURE GRAN PERCENT AUTO 1 % (0-1); LYMPHOCYTES ABSOLUTE AUTO 1.86 K/mm3 (0.84-5.20); LYMPHOCYTES PERCENT AUTO 12 % (21-46); MONOCYTES ABSOLUTE AUTO 0.70 K/mm3 (0.16-1.47); MONOCYTES PERCENT AUTO 5 % (4-13); Mean Corpuscular HGB Conc 31.5 g/dL (31.5-36.5); Mean Corpuscular Volume 98 fL (80-100); NEUTROPHILS ABSOLUTE AUTO 12.42 K/mm3 (1.96-9.15); NEUTROPHILS PERCENT AUTO 81 % (41-73); NRBC ABSOLUTE 0.00 K/mm3 (0.00-0.02); NRBC Auto 0.0 /100 WBC (0.0-0.2); Platelet Count 229 K/mm3 (150-400); RDW Coefficient Variation 15.7 % (11.7-14.2); RDW Standard Deviation 56.2 fL (35.1-46.3)
[2025-02-15 04:37] LABS: Albumin, Blood 2.0 g/dL (3.4-5.0); Anion Gap 8 mmol/L (3-11); Blood Urea Nitrogen 30 mg/dL (8-24); CO2, Blood 23 mmol/L (21-32); Calcium, Blood 8.3 mg/dL (8.5-10.1); Chloride, Blood 111 mmol/L (98-108); Creatinine, Blood 1.47 mg/dL (0.60-1.20); Glucose, Blood 123 mg/dL (70-99); Phosphorus, Blood 3.4 mg/dL (2.5-4.9); Potassium, Blood 4.6 mmol/L (3.5-5.5); Sodium, Blood 137 mmol/L (136-145)
--- NOTE | 2025-02-15 06:24 | NUR ---
SHIFT SUMMARY PT HAS TOLERATED SHIFT WELL WITH NO CHANGES IN STATUS OVERNIGHT. PT HAS BEEN ABLE TO ANSWER QUESTIONS APPROPRIATELY. PT HAS RECIEVED ONE LITER OF FLUID THROUGH CBI AND URINE HAS BEEN LIGHT YELLOW IN COLOR. PT HAD LOW HEART RATE AT SOME POINTS OVERNIGHT, PHYSICIAN INFORMED, THIS NURSE WAS TOLD TO CONTINUE TO MONITOR AND CALL IF A DECREASE INTO 40s THAT SUSTAINED. PT DID NOT HAVE ANY OTHER SIGNIFICANT EVENTS OVERNIGHT. WILL CONTINUE TO MONITOR UNTIL REPORT PASSED TO DAY SHIFT TEAM.
[2025-02-15 14:10] LABS: Hematocrit 23.6 % (37.0-53.0); Hemoglobin 7.4 g/dL (13.5-17.5)
--- NOTE | 2025-02-15 16:03 | NUR ---
SHIFT SUMMARY PATIENT IS A&O X4 AND IS ABLE TO MAKE NEEDS KNOWN. VITALS ARE STABLE. 02 SATURATIION >94% ON ROOM AIR. PATIENT IS RECIEVING CBI WITH 2850 INPUT AND 550 OUT. CBI BAGS CANGED TODAY. HUTCHINSON CATHETER IS DRAINING TO GRAVITY. PATIENT DID HAVE SCANT RECTAL BLEEDING. OSTOMY IS DRAINING AND PASSING GAS. DENIES CHEST PAIN/PRESSURE OR SOB AT REST. PATIENT RESTING COMFORTABLY IN BED IN LOWEST POSITION, CALL LIGHT WITH IN REACH. 1600 HGB PENDING.
[2025-02-15 16:34] LABS: Hematocrit 24.0 % (37.0-53.0); Hemoglobin 7.5 g/dL (13.5-17.5)
--- NOTE | 2025-02-15 17:02 | NUR ---
PATIENT TRANSFERED TO MEDICAL FLOOR VIA STAFF FROM PCU. PATIENT ALERT AND ORIENTED TO ROOM AND REINFORCED CALL LIGHT USEAGE AND PATIENT REQUESTED SISTER BE NOTIFIED. CALL PLACED TO SISTER AND STAFF FROM PCU ALREADY LET HER KNOW. GLUCOSE BLOOD SUGAR 97. NO COVERAGE NEEDED. CALL LIGHT AND PERSONAL BELONGINGS IN REACH, PATIENT HAS NO CONCERNS.
[2025-02-16 01:30] VITALS: BP 148/65
[2025-02-16 05:00] VITALS: BP 145/56
[2025-02-16 05:17] LABS: BASOPHILS ABSOLUTE AUTO 0.07 K/mm3 (0.00-0.23); BASOPHILS PERCENT AUTO 1 % (0-2); EOSINOPHILS ABSOLUTE AUTO 0.40 K/mm3 (0.00-0.68); EOSINOPHILS PERCENT AUTO 3 % (0-6); Hematocrit 25.8 % (37.0-53.0); Hemoglobin 7.9 g/dL (13.5-17.5); IMMATURE GRAN ABSOLUTE AUTO 0.24 K/mm3 (0.00-0.10); IMMATURE GRAN PERCENT AUTO 2 % (0-1); LYMPHOCYTES ABSOLUTE AUTO 3.17 K/mm3 (0.84-5.20); LYMPHOCYTES PERCENT AUTO 26 % (21-46); MONOCYTES ABSOLUTE AUTO 0.70 K/mm3 (0.16-1.47); MONOCYTES PERCENT AUTO 6 % (4-13); Mean Corpuscular HGB Conc 30.6 g/dL (31.5-36.5); Mean Corpuscular Volume 98 fL (80-100); NEUTROPHILS ABSOLUTE AUTO 7.50 K/mm3 (1.96-9.15); NEUTROPHILS PERCENT AUTO 62 % (41-73); NRBC ABSOLUTE 0.00 K/mm3 (0.00-0.02); NRBC Auto 0.0 /100 WBC (0.0-0.2); Platelet Count 269 K/mm3 (150-400); RDW Coefficient Variation 15.6 % (11.7-14.2); RDW Standard Deviation 55.7 fL (35.1-46.3)
[2025-02-16 05:35] LABS: Albumin, Blood 2.2 g/dL (3.4-5.0); Anion Gap 7 mmol/L (3-11); Blood Urea Nitrogen 31 mg/dL (8-24); CO2, Blood 24 mmol/L (21-32); Calcium, Blood 8.3 mg/dL (8.5-10.1); Chloride, Blood 113 mmol/L (98-108); Creatinine, Blood 1.43 mg/dL (0.60-1.20); Glucose, Blood 100 mg/dL (70-99); Phosphorus, Blood 3.6 mg/dL (2.5-4.9); Potassium, Blood 4.5 mmol/L (3.5-5.5); Sodium, Blood 139 mmol/L (136-145)
--- NOTE | 2025-02-16 07:26 | NUR ---
GAS SCRUBBER OPERATOR SUMMARY PT A&OX4, VSS, EXCEPT FOR HTN. PT HAS BEEN ASLEEP ON AND OFF THROUGHOUT THE NIGHT. CHEST RISE/RESPIRATIONS NOTED. REMAINS ON TELE. SR AT 72. PT IS ON CBI W/ A 3 WAY HUTCHINSON. HUTCHINSON FREE OF KINKS/OBSTRUCTIONS. FLOWING TO GRAVITY. 8850 IN, 27343 OUT. CHARGE NURSE CONSULTED W/ FOR FLOW RATE. OUTPUT VARIES FROM PINK TINGED TO SLIGHTLY YELLOW. HUTCHINSON BAG WAS CHANGED 1X D/T CLOT OBSTRUCTION. PT HAS L ABD OSTOMY. PT SELF BURPS BAG. BAG CONTINUES TO HAVE LOW OUTPUT. BED RAILS UP X 2, BED IN LOWEST POSITION, BED WHEELS LOCKED, PERSONAL BELONGINGS AND CALL LIGHT WITHIN REACH FOR SAFETY.
[2025-02-16 07:46] VITALS: BP 162/65
--- NOTE | 2025-02-16 18:29 | NUR ---
SHIFT SUMMARY- PT HAS CONTINUED TO HAVE RED URINE WITH CLOTS, BLADDER IRRIGATION SLOWED A BUT URINE WAS CLEAR THIS AM, PT DEVELOPED SEVERAL CLOTS THAT CLOGGED THE DRAINAGE BAG. BAG WAS CHANGEDAND IRRIGATION REINITIATED, A LITTLE HIGHER RATE, URINE OUTPUT IS SLIGHTLY YELLOW CURRENTLY. VSS. PT SITTING UP IN BED EATING DINNER, CALL LIGHT IN REACH. PT DOES NOT LIKE TO BE DISTURBED AND CAN BE CRANKY WITH STAFF. PT OSTOMY WAS EMPTIED ONCE THIS SHIFT, JUST CHECKED, PT HAD RECENTLY BURPED THE BAG. NO CURRENT S&S OF DISTRESS NOTED.
[2025-02-16 18:30] VITALS: BP 142/61
[2025-02-16 19:14] VITALS: BP 127/57
[2025-02-16 23:19] VITALS: BP 162/62
[2025-02-17 04:14] VITALS: BP 171/67
--- NOTE | 2025-02-17 04:23 | NUR ---
SHIFT SUMMARY PATIENT ALERT AND ORIENTED X4. VSS. PATIENT RESTING COMFORTABLY THROUOUT THE NIGHT. CONTINUOUS BLADDER IRRIGATION CONTINUED WITH LIGHT YELLOW URINE THIS SHIFT. BED IN LOWEST POSITION AND CALL LIGHT WITHIN REACH FOR SAFETY.
--- NOTE | 2025-02-17 12:46 | NUR ---
THIS RN SPOKE WITH BY YOUR SIDE AT 1245 WHO WAS WANTING UPDATE ON PATIENT. UPDATE GIVEN, PATIENT WILL NOT BE DISCHARGED TODAY.
[2025-02-17 14:03] VITALS: BP 82/45
[2025-02-17 14:12] VITALS: BP 94/54
--- NOTE | 2025-02-17 14:27 | NUR ---
1420- THIS RN NOTIFIED MD SONI THAT PT'S BP=80'S OVER 40'S WITH VITAL MACHINE; MANUAL WAS 94/54. PT COMPLAINING OF DIZZINESS WITH STANDING UP AND TRANSFERRING TO BED FROM CHAIR. NO OTHER ABNORMALITIES. STATED TO DC METOPROLOL AND IMDUR AND ORDER CBC AND CMP NOW.
[2025-02-17 15:01] LABS: BASOPHILS ABSOLUTE AUTO 0.03 K/mm3 (0.00-0.23); BASOPHILS PERCENT AUTO 0 % (0-2); EOSINOPHILS ABSOLUTE AUTO 0.37 K/mm3 (0.00-0.68); EOSINOPHILS PERCENT AUTO 4 % (0-6); Hematocrit 24.8 % (37.0-53.0); Hemoglobin 7.8 g/dL (13.5-17.5); IMMATURE GRAN ABSOLUTE AUTO 0.17 K/mm3 (0.00-0.10); IMMATURE GRAN PERCENT AUTO 2 % (0-1); LYMPHOCYTES ABSOLUTE AUTO 1.99 K/mm3 (0.84-5.20); LYMPHOCYTES PERCENT AUTO 20 % (21-46); MONOCYTES ABSOLUTE AUTO 0.74 K/mm3 (0.16-1.47); MONOCYTES PERCENT AUTO 7 % (4-13); Mean Corpuscular HGB Conc 31.5 g/dL (31.5-36.5); Mean Corpuscular Volume 98 fL (80-100); NEUTROPHILS ABSOLUTE AUTO 6.68 K/mm3 (1.96-9.15); NEUTROPHILS PERCENT AUTO 67 % (41-73); NRBC ABSOLUTE 0.00 K/mm3 (0.00-0.02); NRBC Auto 0.0 /100 WBC (0.0-0.2); Platelet Count 252 K/mm3 (150-400); RDW Coefficient Variation 15.3 % (11.7-14.2); RDW Standard Deviation 55.0 fL (35.1-46.3)
[2025-02-17 15:20] LABS: Alanine Aminotransfer (ALT/SGP 14.0 U/L (12-78); Albumin, Blood 2.2 g/dL (3.4-5.0); Albumin/Globulin Ratio 0.5 (0.8-1.8); Anion Gap 7.0 mmol/L (3-11); Aspartate Aminotrans (AST/SGOT 10.0 U/L (12-37); Bilirubin, Total 0.2 mg/dL (0.1-1.0); Blood Urea Nitrogen 29.0 mg/dL (8-24); CO2, Blood 26.0 mmol/L (21-32); Calcium, Blood 8.7 mg/dL (8.5-10.1); Chloride, Blood 109.0 mmol/L (98-108); Creatinine, Blood 1.48 mg/dL (0.60-1.20); Globulin, Blood 4.4 g/dL (2.2-4.0); Glucose, Blood 126.0 mg/dL (70-99); Potassium, Blood 4.4 mmol/L (3.5-5.5); Sodium, Blood 138.0 mmol/L (136-145); Total Protein, Blood 6.6 g/dL (6.4-8.2)
--- NOTE | 2025-02-17 17:12 | NUR ---
SHIFT SUMMARY PATIENT IS A&OX4, SLOW TO RESPOND TO SOME QUESTIONS. HE IS ON ROOM AIR. HE IS ON TELE 1ST DEGREE AV BLOCK, PVC, AT 69BPM. PATIENT HAD SOME SOFT PRESSURES TODAY. DOCTOR WAS NOTIFIED, BLOOD PRESSURE MEDICATIONS ADJUSTED BY DOCTOR ACCORDINGLY AND LABS ORDERED TO FURTHER EVALUATE. OT AND PT CONSULTED TODAY, PATIENT ABLE TO INDEPENDENTLY AMBULATE TO CHAIR AND BACK TO BED WITH FWW AND STAND BY. DR. BERRY CONSULTED PATIENT AND DISCONTINUED THE BLADDER IRRIGATION. PATIENT IS HAVING APPROPRIATE OUTPUT OF CLEAR YELLOW URINE INTO THE HUTCHINSON BAG. SISTER "JOANNE" WAS HERE TODAY AND HAS CONCERNS ABOUT HIM DISCHARGING SINCE HE LIVES ALONE IN A SINGLE WIDE TRAILER WITH SOME FRONT STEPS. WILL HAVE CARE MANAGEMENT CALL HER TOMORROW. HE IS CURRENTLY SITTING UP IN BED, BED IN THE LOWEST POSITION AND CALL LIGHT IS WITHIN REACH.
[2025-02-17 17:23] VITALS: BP 110/47
[2025-02-17 21:11] VITALS: BP 117/45
[2025-02-18 00:57] VITALS: BP 144/65
[2025-02-18 04:52] LABS: BASOPHILS ABSOLUTE AUTO 0.03 K/mm3 (0.00-0.23); BASOPHILS PERCENT AUTO 0 % (0-2); EOSINOPHILS ABSOLUTE AUTO 0.41 K/mm3 (0.00-0.68); EOSINOPHILS PERCENT AUTO 4 % (0-6); Hematocrit 24.9 % (37.0-53.0); Hemoglobin 7.9 g/dL (13.5-17.5); IMMATURE GRAN ABSOLUTE AUTO 0.13 K/mm3 (0.00-0.10); IMMATURE GRAN PERCENT AUTO 1 % (0-1); LYMPHOCYTES ABSOLUTE AUTO 2.65 K/mm3 (0.84-5.20); LYMPHOCYTES PERCENT AUTO 28 % (21-46); MONOCYTES ABSOLUTE AUTO 0.62 K/mm3 (0.16-1.47); MONOCYTES PERCENT AUTO 7 % (4-13); Mean Corpuscular HGB Conc 31.7 g/dL (31.5-36.5); Mean Corpuscular Volume 96 fL (80-100); NEUTROPHILS ABSOLUTE AUTO 5.77 K/mm3 (1.96-9.15); NEUTROPHILS PERCENT AUTO 60 % (41-73); NRBC ABSOLUTE 0.00 K/mm3 (0.00-0.02); NRBC Auto 0.0 /100 WBC (0.0-0.2); Platelet Count 265 K/mm3 (150-400); RDW Coefficient Variation 15.3 % (11.7-14.2); RDW Standard Deviation 53.5 fL (35.1-46.3)
[2025-02-18 05:02] VITALS: BP 155/59
[2025-02-18 05:23] LABS: Alanine Aminotransfer (ALT/SGP 16.0 U/L (12-78); Albumin, Blood 2.3 g/dL (3.4-5.0); Albumin/Globulin Ratio 0.5 (0.8-1.8); Anion Gap 8.0 mmol/L (3-11); Aspartate Aminotrans (AST/SGOT 16.0 U/L (12-37); Bilirubin, Total 0.2 mg/dL (0.1-1.0); Blood Urea Nitrogen 32.0 mg/dL (8-24); CO2, Blood 26.0 mmol/L (21-32); Calcium, Blood 8.6 mg/dL (8.5-10.1); Chloride, Blood 109.0 mmol/L (98-108); Creatinine, Blood 1.39 mg/dL (0.60-1.20); Globulin, Blood 4.3 g/dL (2.2-4.0); Glucose, Blood 107.0 mg/dL (70-99); Potassium, Blood 4.5 mmol/L (3.5-5.5); Sodium, Blood 138.0 mmol/L (136-145); Total Protein, Blood 6.6 g/dL (6.4-8.2)
[2025-02-18 08:27] VITALS: BP 144/58
[2025-02-18] MEDS ORDERED: Epoetin Alfa-EPBX 10,000 Unit/ML 1ML Vial SC SCH (09:00)
[2025-02-18 11:40] VITALS: BP 147/55
[2025-02-18] MEDS ORDERED: SULTRIDS PO (14:11)
--- NOTE | 2025-02-18 17:13 | NUR ---
DISCHARGE NOTE PATIENT A/OX4, ABLE TO MAKE NEEDS KNOWN. IRRITABLE AND PARTICULAR WITH CARE, BUT COOPERATIVE. PATIENT WITH DISCHARGE ORDERS, AGREEABLE TO DISCHARGE PLAN. SISTER, JOANNE, INFORMED OF DISCHARGE AND STATES CONCERNS WITH PATIENT BEING ABLE TO GO UP THE STAIRS INTO HIS HOME. PHYSICAL THERAPY CALLED AND CAME TO ASSESS AND PATIENT ABLE TO COMPLETE MULTIPLE STEPS WITHOUT PROBLEM. DISHCAREG INTSRUCTIONS DISCUSSED WITH PATIENT AND HIS SISTER. FOLLOW SCHEDULED WITH UROLOGY OUTPATIENT AND INFORMED PATIENT TO SCHEDULE HOSPITAL FOLLOW UP AT [facility] WITHIN 2 WEEKS. MEDICATIONS DISCUSSED AND DISCONTINUATION HOME MEDS AND START OF ABX DISCUSSED, ALL PARTIES AGREEABLE TO PLAN. PATIENT EDUCATED REGARDING HUTCHINSON CATHETER CARE AND PROVIDED PAPER EDUCATION PACKET WITH HUTCHINSON CARE INSTRUCTIONS. NO OTHER CONCERNS AT THIS TIME, IV REMOVED, TELEMETRY REMOVED. PATIENT ASSISTED TO FAMILY VEHICLE BY [facility] STAFF WITH ALL BELONGINGS IN HAND.
== END 2025-02-18 16:31 | disposition home health service (06) | DRG 871 ==
LOC: ER 11:15 → PCU 15:20 → MEDS 02-15 16:49
PROVIDERS: Hospitalist; Internal Medicine; Physician Assistant; Student in an Organized Health Care Education/Training Program; Urology; ADMIT Family Medicine
PROC: 3E03329 Introduction of Other Anti-infective into Peripheral Vein, Percutaneous Approach (ICD-10-PCS; 2025-02-10)
PROC: 0T9B70Z Drainage of Bladder with Drainage Device, Via Natural or Artificial Opening (ICD-10-PCS; principal; 2025-02-11)
PROC: 30233N1 Transfusion of Nonautologous Red Blood Cells into Peripheral Vein, Percutaneous Approach (ICD-10-PCS; 2025-02-13)
PROC: 0TBD8ZX Excision of Urethra, Via Natural or Artificial Opening Endoscopic, Diagnostic (ICD-10-PCS; 2025-02-14)
DX: A41.9 Sepsis, unspecified organism (principal); G92.8 Other toxic encephalopathy; N17.9 Acute kidney failure, unspecified; E87.1 Hypo-osmolality and hyponatremia; E87.4 Mixed disorder of acid-base balance; N13.6 Pyonephrosis; N30.41 Irradiation cystitis with hematuria; D62 Acute posthemorrhagic anemia; A04.72 Enterocolitis due to Clostridium difficile, not specified as recurrent; E78.00 Pure hypercholesterolemia, unspecified; E11.42 Type 2 diabetes mellitus with diabetic polyneuropathy; R65.20 Severe sepsis without septic shock; R54 Age-related physical debility; J44.89 Other specified chronic obstructive pulmonary disease; I25.2 Old myocardial infarction; E11.51 Type 2 diabetes mellitus with diabetic peripheral angiopathy without gangrene; I12.9 Hypertensive chronic kidney disease with stage 1 through stage 4 chronic kidney disease, or unspecified chronic kidney disease; N32.0 Bladder-neck obstruction; E11.22 Type 2 diabetes mellitus with diabetic chronic kidney disease; N18.30 Chronic kidney disease, stage 3 unspecified; D63.1 Anemia in chronic kidney disease; G40.909 Epilepsy, unspecified, not intractable, without status epilepticus; E78.5 Hyperlipidemia, unspecified; I25.10 Atherosclerotic heart disease of native coronary artery without angina pectoris; N40.1 Benign prostatic hyperplasia with lower urinary tract symptoms; R32 Unspecified urinary incontinence; N13.9 Obstructive and reflux uropathy, unspecified; R31.0 Gross hematuria; R33.8 Other retention of urine; E66.9 Obesity, unspecified; N36.8 Other specified disorders of urethra; Z98.890 Other specified postprocedural states; Z68.31 Body mass index [BMI] 31.0-31.9, adult; Z87.891 Personal history of nicotine dependence; Z79.82 Long term (current) use of aspirin; Z79.899 Other long term (current) drug therapy; Z88.8 Allergy status to other drugs, medicaments and biological substances; Z91.030 Bee allergy status
CPT/HCPCS: 36415; 36430; 51702; 70450; 71045; 76770; 80048; 80053; 80069; 81001; 82140; 82550; 82728; 82803; 82947; 83540; 83550; 83605; 83690; 83735; 84100; 85014; 85018; 85025; 85610; 86850; 86900; 86901; 86923; 87040; 87077; 87086; 87186; 87324; 87507; 88305; 93971; 94640; 94664; 94760; 94762; 97110; 97116; 97161; 97165; 97530; 97535; 99285-25; A9270; C1758; C1769; J0290; J0295; J0360; J1100; J1171; J1815; J2185; J2405; J2704; J2765; J3010; J7030; J7040; J7120; P9016; Q5106

== ENCOUNTER → 2025-03-26 | Outpatient (CLI) | payer OTHER ==
[~2025-03-26] MED LIST changes: +FERROUS SULFAT325 M3 PO; +SULTRIDS PO
[2025-03-26 12:42] LABS: Source, Urine Voided
[2025-03-26 13:27] LABS: Color, Urine Yellow (P-Yellow); Glucose Qualitative, Urine Neg (Neg); Ketones, Urine Neg (Neg); Leukocyte Esterase, Urine 3+ (Neg); Protein, Urine 3+ (Neg); Specific Gravity, Urine 1.020 (1.003-1.022); Urobilinogen, Urine NORM (Normal)
[2025-03-26 13:33] LABS: Bilirubin, Urine 1+ (Neg)
[2025-03-26 13:36] LABS: Red Blood Cells, Urine 50-100 /hpf (0-2); White Blood Cells, Urine 25-50 /hpf (0-5)
== END ==
LOC: LAB 10:37 → LAB SHORT 10:37
PROVIDERS: Internal Medicine Nephrology
DX: R82.90 Unspecified abnormal findings in urine (principal)
CPT/HCPCS: 81001; 87077; 87086; 87186